=== PATIENT | female | born 1960 | race Caucasian/White ===

== ENCOUNTER 2025-03-25 12:40 | Inpatient (IN) | payer OTHER, SELFPAY ==
[2025-03-25] VITALS (8 sets, daily range): BP systolic 109–146; BP diastolic 46–84; PULSE 69–81; RESP 14–21; TEMP 36.2–37.1; O2SAT 93–98; BMI 29.4
--- NOTE | ~2025-03-25 | CT_ITS ---
EXAMINATION: CT HEAD WITHOUT IV CONTRAST STROKE HISTORY: slurred speech. TECHNIQUE: Unenhanced helical CT of the head was performed per standard departmental protocol. Coronal and sagittal reformats of the head were also evaluated. One or more of the following techniques was used for dose reduction: Automated exposure control, adjustment of the mA and/or kV according to patient size, use of iterative reconstruction technique. DLP: 709 mGy-cm COMPARISON: There are no prior studies available for comparison. FINDINGS: BRAIN: There is diffuse prominence of the ventricular system and cortical sulci, consistent with atrophy. Periventricular and subcortical white matter hypodensities are noted which are nonspecific, but often seen in the setting of small vessel ischemic disease. There is no mass effect or midline shift. No intra- or extra-axial fluid collections are identified. SINUSES: The visualized paranasal sinuses are clear. The mastoid air cells and middle ear cavities are well pneumatized. ORBITS: The visualized orbits are unremarkable. BONES/SOFT TISSUES: The extracranial soft tissues are unremarkable. The calvarium is intact. No suspicious lytic or sclerotic lesions. CT/CT head for STROKE IMPRESSION: No acute intracranial abnormality. Findings were discussed with Dr. Lockett in the emergency room on 03/25/2025 at 1:15 p.m. Electronically signed by: Donn Reece MD 03/25/2025 01:15 PM EDT
--- NOTE | 2025-03-25 12:47 | ECG_ITS ---
Test Reason : stroke alert Blood Pressure : */* mmHG Vent. Rate : 73 BPM Atrial Rate : 73 BPM P-R Int : 136 ms QRS Dur : 86 ms QT Int : 412 ms P-R-T Axes : 77 -20 7 degrees QTcB Int : 453 ms Normal sinus rhythm Nonspecific T wave abnormality Abnormal ECG No previous ECGs available Referred By: Jaycee Bloom Electronically Signed By: HERON LIM
--- NOTE | 2025-03-25 12:52 | ED.NEUROSD ---
HPI - Neuro Symptoms/Deficit General Chief Complaint: Altered Mental Status Stated Complaint: ?STROKE,SPEECH DIF,FROM SNF,[facility]/11A,-[facility]INNERS Source: patient, EMS and old records reviewed Mode of arrival: EMS Limitations: altered mental status History of Present Illness ED Provider: JUAN FRANCISCO GILMORE Narrative: 64 [facility] female [facility] hx of seizures (hx of status 11/2024 requiring ICU intubation), cirrhosis with hepatic encephalopagy, DM, HLD, HTN, confusion at baseline per reccs, not on blood thinners here with c/o increasing AMS since yesterday and then staff noted word finding difficulties but patient states this started yesterday. She denies any pain or falls. She is laughing and states she is fine. She had negative ED FAST per EMS. She denies any fevers n/v/d. Initially only arrived with med list and [facility] no other history or HCP contact call to HCP Silvana [phone] sister aware of plan and work up did not talk to her sister yesterday Onset (ago): day(s) (1) Timing confirmed by: caregiver Location: speech and altered History of same: Yes Severity: mild Relieving factors: none Exacerbating factors: none Context: gradual onset On Anticoagulants: No Associated symptoms: denies other symptoms Treatments Prior to Arrival: none Related Data Allergies Allergy/AdvReac Type Severity Reaction Status Date / Time Penicillins Allergy Unknown Verified 03/25/25 13:10 Sulfa (Sulfonamide Allergy Unknown Verified 03/25/25 13:10 Antibiotics) sulfamethoxazole (From Allergy Unknown Verified 03/25/25 13:10 Bactrim) trimethoprim (From Bactrim) Allergy Unknown Verified 03/25/25 13:10 Review of Systems Review of Systems: Constitutional : No Fever, No Chills, No Fatigue ENT/Mouth : No sore throat, No Rhinorrhea Eyes: No Eye Pain, No Swelling, No Redness Cardiovascular : No Chest Pain, No SOB, No Dyspnea on Exertion Respiratory : No Cough, No Sputum Gastrointestinal : No Nausea, No Vomiting, No Diarrhea, No abdominal Pain Genitourinary : No Dysuria, No Urinary Frequency, No Hematuria, Musculoskeletal : No joint pain, No Myalgias, No Joint Swelling Skin : No Skin Lesions, No rash Neuro : No Weakness, No Numbness, No Dizziness, no Headache All other systems reviewed and are negative PMF Past Medical History Attestation statement: The following information was validated with the patient. Source: old records reviewed Medical History Sacral ulcer Mood disorder Cirrhosis Hepatic encephalopathy Seizures Diabetes Social History Social History Patient Tobacco Use Status: Former Tobacco user Smoked in Last 30 Days: No Use of substances other than those prescribed or required for medical reasons: No Advance Directives: No Advance Directives Information Provided: Yes Do you have a plan to hurt others: No Plan Physical Exam Vital Signs: Vital Signs: Last Vital Signs Temp 97.1 F 03/25/25 16:35 Pulse 75 03/25/25 16:35 Resp 14 03/25/25 16:35 BP 134/56 L 03/25/25 16:35 Pulse Ox 96 03/25/25 16:35 O2 Del Method Room Air 03/25/25 16:35 BMI result Body Mass Index 29.4 Appearance: Alert. Oriented X2.5 (person place and year but thinks it is January). No acute distress. Eyes: Pupils equal, round and reactive to light. ENT: Pharynx normal. Neck: Normal inspection. Neck supple. CVS: Normal heart rate and rhythm. Pulses normal. Respiratory: No respiratory distress. Breath sounds normal. Abdomen: Soft and nontender. Back: has areas of pressure ulcers but no infection, on L hip there is a tracking wound but no purulence or odor, no ttp Skin: Skin warm and dry. Normal skin color. Normal skin turgor. Extremities: No lower extremity edema. No calf ttp Neuro: Oriented X 2.5. No motor deficit. No sensory deficit. slight expressive aphasia but recovers quickly Course Course Course Narrative: lactic acid elevated could be due to liver ds or infection at this time I have ordered fluids and IV ceftriaxone. 225pm Medications Administered Discontinued Medications Generic Name Dose Route Start Last Admin Trade Name Freq PRN Reason Stop Dose Admin Ceftriaxone Sodium 1 gm 03/25/25 14:20 03/25/25 14:43 Ceftriaxone Sodium 1 Gm Vial IVPUSH 03/25/25 14:21 1 gm ONCE ONE Administration Sodium Chloride 1,000 mls @ 999 mls/hr 03/25/25 14:20 03/25/25 16:01 Ns IV 03/25/25 15:20 Infused .Q1H1M ONE Infusion Lactulose 20 gm 03/25/25 14:08 03/25/25 14:15 Lactulose 20 Gm/30 Ml Solution PO 03/25/25 14:09 20 gm ONCE ONE Administration Medical Decision Making Medical Decision Making [facility] Narrative: 64 [facility] female from [facility] hx of seizures, cirrhosis with hepatic encephalopagy, DM, HLD, HTN, confusion at baseline per reccs, not on blood thinners here with c/o increased confusion since yesterday and some word finding difficulties her NIH is 1 which is very low and her symptoms are not debilitating they also note that confusion started yesterday and the patient states her speech was off since yesterday given non debilitating symptoms and window > 4.5 hours not a candidate for TNK. I discussed this with her and her sister. She will need labs, UA, ammonia level, CT head. I am waiting on Cr to obtain CTA as we have no baseline and given her mild symptoms I doubt LVO. Differential Diagnosis Differential Diagnoses: The differential diagnosis associated with the presentation includes hepatic encephalopathy, seizures, stroke Admission/Observation Consideration of admission/observation: Escalation of care including admission/observation considered admit for encephalopathy Consult Healthcare Provider Management of the patient was discussed with: Hospitalist (will admit) Lab Data [facility] Lab Attestation statement: I reviewed the patient's lab results. ammonia 106 started on lactulose lactic acid cleared 03/25/25 13:47 03/25/25 13:47 Labs: Lab Results 03/25/25 03/25/25 03/25/25 Range/Units 12:44 12:45 13:47 WBC 7.9 (4.8-10.8) X10*3/uL RBC 4.46 (4.20-5.50) X10*6/uL Hgb 14.5 (12.0-16.0) g/dl Hct 42.1 (37.0-47.0) % MCV 94.4 (80.0-98.0) fL MCH 32.5 (27.0-33.0) pg MCHC 34.4 (31.0-35.0) g/dl RDW 14.9 (11.0-16.0) % Plt Count 219 (160-400) X10*3/uL MPV 10.4 (9.4-12.3) fL Immature Gran % (Auto) 0.4 (0.0-0.4) % Neut % (Auto) 59.1 (45-73) % Lymph % (Auto) 25.5 (20-40) % [place] % (Auto) 12.3 H (2-11) % Eos % (Auto) 1.9 (0-4) % Baso % (Auto) 0.8 (0-2) % Lymph # (Auto) 2.0 (1.2-4.9) X10*3/uL [place] # (Auto) 1.0 (0.1-1.2) X10*3/uL Eos # (Auto) 0.2 (0.0-0.4) X10*3/uL Baso # (Auto) 0.1 (0.0-0.2) X10*3/uL Abs Immat Gran (auto) 0.03 (0.00-0.03) X10*3/uL Absolute Neuts (auto) 4.7 (2.0-8.3) x10*3/uL Absolute Nucleated RBC 0.000 (0.0-0.012) X10*3/uL Nucleated RBC % (auto) 0.0 (0.0-0.2) /100WBC Whole Blood PT 14.0 H (11.1-13.5) sec Whole Blood INR 1.2 H (0.9-1.1) VBG pH (7.32-7.43) VBG pCO2 mmHg VBG pO2 mmHg VBG HCO3 (22-26) mmol/L VBG O2 Saturation % VBG Base Excess mmol/L Sodium 140 (135-145) mmol/L Potassium 4.2 (3.3-5.1) mmol/L Chloride 109 H (96-108) mmol/L Carbon Dioxide 23 (22-29) mmol/L Anion Gap 12 (12-20) BUN 14 (9-16) mg/dL Creatinine 0.52 (0.5-1.4) mg/dL Estim Creat Clear Calc 121.4 Estimated GFR > 60 POC Glucose 303 H (60-115) mg/dL Random Glucose 233 H (60-115) mg/dL Lactic Acid 3.5 H* (0.5-2.0) mmol/L Lactic Acid F/U @ 2Hr (0.5-2.0) mmol/L Calcium 8.7 (8.4-10.2) mg/dL Magnesium 1.9 (1.6-2.6) mg/dL Total Bilirubin 1.3 H (0.0-1.0) mg/dL Direct Bilirubin 0.5 (0.0-0.5) mg/dL AST 41 H (5-31) U/L ALT 21 (0-31) U/L Alkaline Phosphatase 112 (39-117) U/L Ammonia 106 H (13-55) umol/L Troponin I High Sens 52.3 H* (<3.5-17.0) ng/L C-Reactive Protein 0.78 H (< or = 0.50) mg/dL B-Natriuretic Peptide 19 (<100) pg/mL Total Protein 6.4 L (6.5-8.0) g/dL Albumin 2.6 L (3.5-5.0) g/dL TSH (0.32-4.0) uIU/mL Urine Color Urine Appearance Urine pH (5.0-9.0) Ur Specific [place] (1.005-1.025) Urine Protein (Neg-Trace) mg/dL Urine Glucose (UA) (Negative) mg/dL Urine Ketones (Negative) mg/dL Urine Blood (Negative) Urine Nitrite (Negative) Ur Leukocyte Esterase (Negative) Urine RBC (0-2) /HPF Urine WBC (0-5) /HPF Ur Squamous Epith Cells (0-2) /HPF Urine Bacteria (None Seen) Hyaline Casts (0-2) /LPF Influenza Type A (PCR) (Negative) Influenza Type B (PCR) (Negative) RSV RNA Qual (PCR) (Negative) SARS-CoV-2 RNA (RT-PCR) (Negative) 03/25/25 03/25/25 03/25/25 Range/Units 13:48 13:53 14:37 WBC (4.8-10.8) X10*3/uL RBC (4.20-5.50) X10*6/uL Hgb (12.0-16.0) g/dl Hct (37.0-47.0) % MCV (80.0-98.0) fL MCH (27.0-33.0) pg MCHC (31.0-35.0) g/dl RDW (11.0-16.0) % Plt Count (160-400) X10*3/uL MPV (9.4-12.3) fL Immature Gran % (Auto) (0.0-0.4) % Neut % (Auto) (45-73) % Lymph % (Auto) (20-40) % [place] % (Auto) (2-11) % Eos % (Auto) (0-4) % Baso % (Auto) (0-2) % Lymph # (Auto) (1.2-4.9) X10*3/uL [place] # (Auto) (0.1-1.2) X10*3/uL Eos # (Auto) (0.0-0.4) X10*3/uL Baso # (Auto) (0.0-0.2) X10*3/uL Abs Immat Gran (auto) (0.00-0.03) X10*3/uL Absolute Neuts (auto) (2.0-8.3) x10*3/uL Absolute Nucleated RBC (0.0-0.012) X10*3/uL Nucleated RBC % (auto) (0.0-0.2) /100WBC Whole Blood PT (11.1-13.5) sec Whole Blood INR (0.9-1.1) VBG pH 7.46 H (7.32-7.43) VBG pCO2 37 mmHg VBG pO2 107 mmHg VBG HCO3 27 H (22-26) mmol/L VBG O2 Saturation 99.0 % VBG Base Excess 3.6 mmol/L Sodium (135-145) mmol/L Potassium (3.3-5.1) mmol/L Chloride (96-108) mmol/L Carbon Dioxide (22-29) mmol/L Anion Gap (12-20) BUN (9-16) mg/dL Creatinine (0.5-1.4) mg/dL Estim Creat Clear Calc Estimated GFR POC Glucose (60-115) mg/dL Random Glucose (60-115) mg/dL Lactic Acid (0.5-2.0) mmol/L Lactic Acid F/U @ 2Hr (0.5-2.0) mmol/L Calcium (8.4-10.2) mg/dL Magnesium (1.6-2.6) mg/dL Total Bilirubin (0.0-1.0) mg/dL Direct Bilirubin (0.0-0.5) mg/dL AST (5-31) U/L ALT (0-31) U/L Alkaline Phosphatase (39-117) U/L Ammonia (13-55) umol/L Troponin I High Sens 52.6 H* (<3.5-17.0) ng/L C-Reactive Protein (< or = 0.50) mg/dL B-Natriuretic Peptide (<100) pg/mL Total Protein (6.5-8.0) g/dL Albumin (3.5-5.0) g/dL TSH 0.83 (0.32-4.0) uIU/mL Urine Color Urine Appearance Urine pH (5.0-9.0) Ur Specific [place] (1.005-1.025) Urine Protein (Neg-Trace) mg/dL Urine Glucose (UA) (Negative) mg/dL Urine Ketones (Negative) mg/dL Urine Blood (Negative) Urine Nitrite (Negative) Ur Leukocyte Esterase (Negative) Urine RBC (0-2) /HPF Urine WBC (0-5) /HPF Ur Squamous Epith Cells (0-2) /HPF Urine Bacteria (None Seen) Hyaline Casts (0-2) /LPF Influenza Type A (PCR) NEGATIVE (Negative) Influenza Type B (PCR) NEGATIVE (Negative) RSV RNA Qual (PCR) NEGATIVE (Negative) SARS-CoV-2 RNA (RT-PCR) NEGATIVE (Negative) 03/25/25 Range/Units 16:30 WBC (4.8-10.8) X10*3/uL RBC (4.20-5.50) X10*6/uL Hgb (12.0-16.0) g/dl Hct (37.0-47.0) % MCV (80.0-98.0) fL MCH (27.0-33.0) pg MCHC (31.0-35.0) g/dl RDW (11.0-16.0) % Plt Count (160-400) X10*3/uL MPV (9.4-12.3) fL Immature Gran % (Auto) (0.0-0.4) % Neut % (Auto) (45-73) % Lymph % (Auto) (20-40) % [place] % (Auto) (2-11) % Eos % (Auto) (0-4) % Baso % (Auto) (0-2) % Lymph # (Auto) (1.2-4.9) X10*3/uL [place] # (Auto) (0.1-1.2) X10*3/uL Eos # (Auto) (0.0-0.4) X10*3/uL Baso # (Auto) (0.0-0.2) X10*3/uL Abs Immat Gran (auto) (0.00-0.03) X10*3/uL Absolute Neuts (auto) (2.0-8.3) x10*3/uL Absolute Nucleated RBC (0.0-0.012) X10*3/uL Nucleated RBC % (auto) (0.0-0.2) /100WBC Whole Blood PT (11.1-13.5) sec Whole Blood INR (0.9-1.1) VBG pH (7.32-7.43) VBG pCO2 mmHg VBG pO2 mmHg VBG HCO3 (22-26) mmol/L VBG O2 Saturation % VBG Base Excess mmol/L Sodium (135-145) mmol/L Potassium (3.3-5.1) mmol/L Chloride (96-108) mmol/L Carbon Dioxide (22-29) mmol/L Anion Gap (12-20) BUN (9-16) mg/dL Creatinine (0.5-1.4) mg/dL Estim Creat Clear Calc Estimated GFR POC Glucose (60-115) mg/dL Random Glucose (60-115) mg/dL Lactic Acid (0.5-2.0) mmol/L Lactic Acid F/U @ 2Hr 2.4 H* (0.5-2.0) mmol/L Calcium (8.4-10.2) mg/dL Magnesium (1.6-2.6) mg/dL Total Bilirubin (0.0-1.0) mg/dL Direct Bilirubin (0.0-0.5) mg/dL AST (5-31) U/L ALT (0-31) U/L Alkaline Phosphatase (39-117) U/L Ammonia (13-55) umol/L Troponin I High Sens (<3.5-17.0) ng/L C-Reactive Protein (< or = 0.50) mg/dL B-Natriuretic Peptide (<100) pg/mL Total Protein (6.5-8.0) g/dL Albumin (3.5-5.0) g/dL TSH (0.32-4.0) uIU/mL Urine Color Dark Yellow Urine Appearance Cloudy Urine pH 5.5 (5.0-9.0) Ur Specific [place] 1.025 (1.005-1.025) Urine Protein Trace (Neg-Trace) mg/dL Urine Glucose (UA) 250 H (Negative) mg/dL Urine Ketones Negative (Negative) mg/dL Urine Blood Trace H (Negative) Urine Nitrite Negative (Negative) Ur Leukocyte Esterase Large (3+) H (Negative) Urine RBC 3-5 H (0-2) /HPF Urine WBC >50 H (0-5) /HPF Ur Squamous Epith Cells 11-20 (0-2) /HPF Urine Bacteria 4+ (None Seen) Hyaline Casts 0-2 (0-2) /LPF Influenza Type A (PCR) (Negative) Influenza Type B (PCR) (Negative) RSV RNA Qual (PCR) (Negative) SARS-CoV-2 RNA (RT-PCR) (Negative) Independent Interpretation I performed an independent interpretation of an: EKG, Plain X-Ray and CT Scan (no ICH) Interpretation: Rate: 73 Rhythm: NSR [place]: left Normal P waves. Normal DORIAN. Normal QRS complex. ST T wave : inverted t waves III, no PAT qTC: 453 prior studies: no prior The study has been interpreted contemporaneously by me. . Radiology Impression Discussion of test interpretation with radiology: I have reviewed the radiologist's reading. Independent Historian Clinical information obtained from an independent historian. History obtained from or confirmed by: EMS External Record Review External record reviewed: Outpatient record NIH Stroke Scale Internal: Initial- Upon Arrival Level of Consciousness: Alert Level of Consciousness Questions: Answers both questions correctly Level of Consciousness Commands: Performs both tasks correctly Best Gaze: Normal Visual: No visual loss Facial Palsy: Normal Motor Arm (Right): No drift Motor Arm (Left): No drift Motor Leg (Right): No drift Motor Leg (Left): No drift Limb Ataxia: Absent Sensory: Normal Best Language: Mild to moderate aphasia Dysarthia: Normal Extinction and Inattention: No abnormality Score: 1 Critical Care Time Critical Care Time Critical Care Time: Yes Total Critical Care Time: 40 Attestation: Time is exclusive of separately billable procedures. Time includes: direct patient care, patient reassessment, coordination of patient care, interpretation of data (laboratory data, pulse oximetry, arterial blood gases and chest xrays/CT scans), review of patient's medical records, medical consultation and documentation of patient care. stroke protocol, family work upProcedures excluded from critical care time: electrocardiography. Discharge Plan Discharge Clinical Impression: Acute hepatic encephalopathy, Acidosis, lactic, Acute UTI Altered mental status Qualifiers: Altered mental status type: unspecified Qualified Code(s): R41.82 - Altered mental status, unspecified Patient Disposition: Admitted As Inpatient Print Language: Danish
[2025-03-25 12:53] LABS: Prothrombin Time Whole Bld POC 14.0 sec (11.1-13.5); ~PT, ~INR - Anti Coag Clinic 1.2 (0.9-1.1)
[2025-03-25 12:54] LABS: Glucose, Whole Blood 303 mg/dL (60-115)
--- NOTE | 2025-03-25 13:16 | PC.NURSE ---
Pt A&O X4 VSS Pt seen at door by provider and STAT CT done, Pt able to explain that she she did not want the facility to worry that she was fine but started feeling confused and they got worried . Pt placed on full monitor- NSR No ectopy, moves all extremities equal and well. Pupils Equal and reactive.
[2025-03-25 13:52] LABS: MANUAL DIFF FLAG NO
[2025-03-25 13:57] LABS: VBG HCO3 27 mmol/L (22-26); VBG O2 % Saturation 99.0 %
[2025-03-25 13:58] LABS: Venous Blood Gas Refer to POC result
[2025-03-25 14:03] LABS: Hematocrit 42.1 % (37.0-47.0); Hemoglobin 14.5 g/dl (12.0-16.0); Imm Gran Abs Auto 0.03 X10*3/uL (0.00-0.03); Imm Gran Pct Auto 0.4 % (0.0-0.4); Lymphocytes Absolute Auto 2.0 X10*3/uL (1.2-4.9); Mean Corpuscular HGB Conc 34.4 g/dl (31.0-35.0); Mean Corpuscular Hemoglobin 32.5 pg (27.0-33.0); Mean Corpuscular Volume 94.4 fL (80.0-98.0); NRBC Abs Auto 0.000 X10*3/uL (0.0-0.012); NRBC Pct Auto 0.0 /100WBC (0.0-0.2); Platelet Count 219 X10*3/uL (160-400); Red Blood Count 4.46 X10*6/uL (4.20-5.50); White Blood Count 7.9 X10*3/uL (4.8-10.8)
[2025-03-25 14:06] LABS: Ammonia 106 umol/L (13-55)
[2025-03-25 14:10] LABS: Alanine Aminotransferase 21 U/L (0-31); Albumin Level 2.6 g/dL (3.5-5.0); Alkaline Phosphatase 112 U/L (39-117); Anion Gap 12 (12-20); Aspartate Amino Transferase 41 U/L (5-31); Blood Urea Nitrogen 14 mg/dL (9-16); Calcium 8.7 mg/dL (8.4-10.2); Carbon Dioxide 23 mmol/L (22-29); Chloride 109 mmol/L (96-108); Creatinine Clr Calc Pharmacy 121.4; Estimated Glomerular Filt Rate > 60; Magnesium 1.9 mg/dL (1.6-2.6); Potassium 4.2 mmol/L (3.3-5.1); Sodium 140 mmol/L (135-145); Total Protein 6.4 g/dL (6.5-8.0)
[2025-03-25 14:14] LABS: B Type Natriuretic Peptide 19 pg/mL (<100)
[2025-03-25 14:21] LABS: Troponin-I High Sensitivity 52.3 ng/L (<3.5-17.0)
[2025-03-25 14:32] LABS: Resp Syncy Virus RNA Qual PCR NEGATIVE (Negative); SARS COV2 PCR INHOUSE NEGATIVE (Negative)
[2025-03-25 15:15] LABS: Troponin-I High Sensitivity 52.6 ng/L (<3.5-17.0)
[2025-03-25 15:52] LABS: Reflex Lactate? Lactic Acid Added
--- NOTE | 2025-03-25 16:14 | PC.NURSE ---
foam dressing placed to coccyx/ sacrum
--- NOTE | 2025-03-25 16:27 | PC.NURSE ---
repositioned to right side, pillow placed under buttocks, family at bedside
[2025-03-25 16:40] LABS: Appearance Urine Cloudy; Glucose Urine UA 250 mg/dL (Negative); PH 5.5 (5.0-9.0); Specific Gravity - Urine 1.025 (1.005-1.025); UMIC TRIGGER UACC YES
[2025-03-25 16:46] LABS: UACC Culture Trigger YES
[2025-03-25 16:59] LABS: ~Lactic Acid-LAB USE ONLY 2.4 mmol/L (0.5-2.0)
--- NOTE | 2025-03-25 18:09 | P.HPHOSP_ITS ---
History of Present Illness Date of Service: 03/25/25 Chief Complaint: Altered mental status 64 [facility] female from [facility] hx of seizures (hx of status 11/2024 requiring ICU intubation), cirrhosis with hepatic encephalopagy, DM, HLD, HTN, confusion at baseline per reccs, not on blood thinners here with c/o increasing AMS since yesterday and then staff noted word finding difficulties but patient states this started yesterday. She denies any pain or falls. She is laughing and states she is fine. She had negative ED FAST per EMS. She denies any fevers n/v/d. Initially only arrived with med list and [facility] no other history or HCP contact. Did not qualify for TN K based on a greater than a 4.5 hour window. At this point in time she will be admitted and observed and re-evaluated in a.m. Review of Systems 2 Review of Systems: Unable to obtain [facility] Medical History (Updated 03/25/25 @ 18:12 by Walter Monique DO) Sacral ulcer Mood disorder Cirrhosis Hepatic encephalopathy Seizures Diabetes Social History Patient Tobacco Use Status: Former Tobacco user Smoked in Last 30 Days: No Use of substances other than those prescribed or required for medical reasons: No Advance Directives: No Advance Directives Information Provided: Yes Do you have a plan to hurt others: No Plan Meds Allergies Allergy/AdvReac Type Severity Reaction Status Date / Time Penicillins Allergy Unknown Verified 03/25/25 13:10 Sulfa (Sulfonamide Allergy Unknown Verified 03/25/25 13:10 Antibiotics) sulfamethoxazole (From Allergy Unknown Verified 03/25/25 13:10 Bactrim) trimethoprim (From Bactrim) Allergy Unknown Verified 03/25/25 13:10 Active Medications: Current Medications Acetaminophen (Acetaminophen 325 Mg Tablet) 650 mg PO Q6H PRN PRN Reason: Pain, Mild 1-3,fever,headache Calcium Carbonate (Calcium Carbonate 750 Mg Tab.Chew) 750 mg PO Q4H PRN PRN Reason: Heartburn Enoxaparin Sodium (Enoxaparin Sodium 40 Mg/0.4 Ml Syringe) 40 mg SUBCUT Q24H YONNY Lactated Ringer's (Lr) 1,000 mls @ 100 mls/hr IVCONT .Q10H YONNY Magnesium Hydroxide (Milk Of Magnesia 30 Ml Oral.Susp) 30 ml PO DAILY PRN PRN Reason: Constipation Melatonin (Melatonin 3 Mg Tablet) 6 mg PO BEDTIME PRN PRN Reason: Insomnia Ondansetron HCl (Ondansetron Hcl 4 Mg/2 Ml Vial) 4 mg IVPUSH Q8H PRN PRN Reason: Nausea and Vomiting Sodium Chloride (0.9 % Sodium Chloride Flush 3 Ml Syringe) 3 ml IVFLUSH QSHIFT [facility] Physical Exam 2 Vital Signs and Narrative: Vital Signs: Last Vital Signs Temp 97.6 F 03/25/25 18:06 Pulse 73 03/25/25 18:06 Resp 15 03/25/25 18:06 BP 133/47 L 03/25/25 18:06 Pulse Ox 95 03/25/25 18:06 O2 Del Method Room Air 03/25/25 18:06 BMI result Body Mass Index 29.4 Const: Other: Awake confused. Speech slow Resp: Other: Clear to auscultation bilaterally no rales rhonchi or wheezes Cardio: Other: No S4; positive S1-S2; no S3 murmurs rubs or gallops GI: Other: Soft nontender nondistended normoactive bowel sounds Skin: Other: See admitting ER pictures for details Extrem: Other: No edema bilaterally Results Labs 03/25/25 13:47 03/25/25 13:47 Labs: Laboratory Results - last 24 hr 03/25/25 03/25/25 03/25/25 12:44 12:45 13:47 MCV 94.4 MCH 32.5 MCHC 34.4 RDW 14.9 Plt Count 219 MPV 10.4 Immature Gran % (Auto) 0.4 Neut % (Auto) 59.1 Lymph % (Auto) 25.5 [place] % (Auto) 12.3 H Eos % (Auto) 1.9 Baso % (Auto) 0.8 Lymph # (Auto) 2.0 [place] # (Auto) 1.0 Eos # (Auto) 0.2 Baso # (Auto) 0.1 Abs Immat Gran (auto) 0.03 Absolute Neuts (auto) 4.7 Absolute Nucleated RBC 0.000 Nucleated RBC % (auto) 0.0 Whole Blood PT 14.0 H Whole Blood INR 1.2 H VBG pH VBG pCO2 VBG pO2 VBG HCO3 VBG O2 Saturation VBG Base Excess Anion Gap 12 Estim Creat Clear Calc 121.4 Estimated GFR > 60 POC Glucose 303 H Random Glucose 233 H Lactic Acid 3.5 H* Lactic Acid F/U @ 2Hr Calcium 8.7 Magnesium 1.9 Total Bilirubin 1.3 H Direct Bilirubin 0.5 AST 41 H ALT 21 Alkaline Phosphatase 112 Ammonia 106 H C-Reactive Protein 0.78 H B-Natriuretic Peptide 19 Total Protein 6.4 L Albumin 2.6 L TSH Urine Color Urine Appearance Urine pH Ur Specific [place] Urine Protein Urine Glucose (UA) Urine Ketones Urine Blood Urine Nitrite Ur Leukocyte Esterase Urine RBC Urine WBC Ur Squamous Epith Cells Urine Bacteria Hyaline Casts Influenza Type A (PCR) Influenza Type B (PCR) RSV RNA Qual (PCR) SARS-CoV-2 RNA (RT-PCR) 03/25/25 03/25/25 03/25/25 13:48 13:53 16:30 MCV MCH MCHC RDW Plt Count MPV Immature Gran % (Auto) Neut % (Auto) Lymph % (Auto) [place] % (Auto) Eos % (Auto) Baso % (Auto) Lymph # (Auto) [place] # (Auto) Eos # (Auto) Baso # (Auto) Abs Immat Gran (auto) Absolute Neuts (auto) Absolute Nucleated RBC Nucleated RBC % (auto) Whole Blood PT Whole Blood INR VBG pH 7.46 H VBG pCO2 37 VBG pO2 107 VBG HCO3 27 H VBG O2 Saturation 99.0 VBG Base Excess 3.6 Anion Gap Estim Creat Clear Calc Estimated GFR POC Glucose Random Glucose Lactic Acid Lactic Acid F/U @ 2Hr 2.4 H* Calcium Magnesium Total Bilirubin Direct Bilirubin AST ALT Alkaline Phosphatase Ammonia C-Reactive Protein B-Natriuretic Peptide Total Protein Albumin TSH 0.83 Urine Color Dark Yellow Urine Appearance Cloudy Urine pH 5.5 Ur Specific [place] 1.025 Urine Protein Trace Urine Glucose (UA) 250 H Urine Ketones Negative Urine Blood Trace H Urine Nitrite Negative Ur Leukocyte Esterase Large (3+) H Urine RBC 3-5 H Urine WBC >50 H Ur Squamous Epith Cells 11-20 Urine Bacteria 4+ Hyaline Casts 0-2 Influenza Type A (PCR) NEGATIVE Influenza Type B (PCR) NEGATIVE RSV RNA Qual (PCR) NEGATIVE SARS-CoV-2 RNA (RT-PCR) NEGATIVE Imaging Radiologist's Impressions: Impressions Head CT 03/25/25 12:52 IMPRESSION: No acute intracranial abnormality. Findings were discussed with Dr. Lockett in the emergency room on 03/25/2025 at 1:15 p.m. Electronically signed by: Donn Reece MD 03/25/2025 01:15 PM EDT RP Assessment and Plan (1) Acute hepatic encephalopathy: Status: Acute (2) Acute UTI: Status: Acute Plan 64 [facility] female from [facility] hx of seizures (hx of status 11/2024 requiring ICU intubation), cirrhosis with hepatic encephalopagy, DM, HLD, HTN, confusion at baseline per reccs, not on blood thinners here with c/o increasing AMS since yesterday and then staff noted word finding difficulties but patient states this started yesterday. Workup in ER including CTA of head all unremarkable save urine with active sediment. 1. UTI with mental status changes -ceftriaxone 1 g Q 24 hours (1) -urine culture pending; adjust therapies based on results -NPO overnight; speech eval in a.m. 2. Hepatic encephalopathy acute -continue lactulose -ammonia level in a.m. 3. Diabetes type 2 -acceptable control on current therapies -lispro correctional scale -adjust as clinically indicated Full code Lovenox Patient will require 2 minutes going forward to treat mental status changes related to UTI with IV antibiotics. This can not be achieved a lesser acute setting Quality Stroke Does the patient have a stroke diagnosis?: No VTE Prior VTE?: No VTE Risk Level:: Medical - moderate - high VTE Device Contraindication: Treatment Not Indicated VTE Drug Contraindication: N/A - Med Ordered
[2025-03-25] MEDS: Lactated Ringers 1,000 ML 100 ML IVCONT (18:11)
[2025-03-25 18:34] LABS: Reflex Lactate? 2 Y
--- NOTE | 2025-03-25 18:38 | PHA.MEDREC ---
Addendum entered by Donovan Rand PharmD 03/25/25 18:41: reviewed Original Note: Pharmacy Consult ? Medication Reconciliation Pharmacy has completed the medication reconciliation. Patient is a poor historian. Utilized list from [facility] to confirm med list.
[2025-03-25 19:24] LABS: ~Lactic Acid-LAB USE ONLY 1.6 mmol/L (0.5-2.0)
[2025-03-25 21:30] LABS: Glucose, Whole Blood 104 mg/dL (60-115)
[2025-03-25] MEDS: 0.9 % Sodium Chloride Flush 3 ML SYRINGE IVFLUSH (21:32)
--- NOTE | 2025-03-25 23:43 | PC.NURSE ---
patient has tele order but no tele box available at the moment. MD aware
[2025-03-26 03:11] VITALS: BP 128/60; PULSE 81; RESP 16; TEMP 36.6; O2SAT 92
[2025-03-26] MEDS: Lactated Ringers 1,000 ML 100 ML IVCONT ×3 (04:14→23:38)
[2025-03-26 07:32] LABS: Glucose, Whole Blood 123 mg/dL (60-115)
[2025-03-26 08:00] VITALS: BP 127/60; PULSE 78; RESP 18; TEMP 37.4; O2SAT 93
[2025-03-26 11:17] LABS: Glucose, Whole Blood 129 mg/dL (60-115)
--- NOTE | 2025-03-26 14:03 | MHC.CM.PN ---
CM ASSESSMENT COMPLETED W/ HCP/SISTER LILIANA. PER LILIANA, PATIENT WAS PREVIOUSLY LIVING WITH A BOYFRIEND. HOWEVER, AFTER A PROLONGED STAY AT [facility] THIS YEAR IS NOW AT STR @ [facility]. REPORTS SHE HAS SUBMITTED ALL FINANCIAL DOCUMENTS TO THE SNF AND THEY ARE WORKING ON [place] TO TRANSITION TO LTC. PCP ÁNGEL MARQUEZ MD @ [facility] HCP OBTAINED FROM [facility]. DP: + BED HOLD AT [facility]. RETURN VIA BLS WHEN MEDICALLY CLEARED. CM WILL CONTINUE TO FOLLOW.
--- NOTE | 2025-03-26 14:47 | HO.PM.IMPN ---
Subjective Subjective Date of Service: 03/26/25 Interval History: No acute issues overnight. Remains pleasantly confused Review of Systems Unable to obtain Physical Exam Vital Signs: Vital Signs: Last Vital Signs Temp 99.3 F 03/26/25 08:00 Pulse 78 03/26/25 08:00 Resp 18 03/26/25 08:00 BP 127/60 03/26/25 08:00 Pulse Ox 93 03/26/25 08:00 O2 Del Method Room Air 03/26/25 08:00 BMI result Body Mass Index 29.4 Const: Other: Awake confused. Speech slow Resp: Other: Clear to auscultation bilaterally no rales rhonchi or wheezes Cardio: Other: No S4; positive S1-S2; no S3 murmurs rubs or gallops GI: Other: Soft nontender nondistended normoactive bowel sounds Skin: Other: See admitting ER pictures for details Extrem: Other: No edema bilaterally Objective Data Active Medications Acetaminophen (Acetaminophen 325 Mg Tablet) 650 mg PO Q6H PRN PRN Reason: Pain, Mild 1-3,fever,headache Calcium Carbonate (Calcium Carbonate 750 Mg Tab.Chew) 750 mg PO Q4H PRN PRN Reason: Heartburn Ceftriaxone Sodium (Ceftriaxone Sodium 1 Gm Vial) 1 gm IVPUSH Q24H [facility] Last Admin: 03/25/25 21:27 Dose: 1 gm Documented By: PAZ Dextrose (Dextrose 50 % 25 Gm/50 Ml Syringe) 25 gm IVPUSH Q15M PRN; Protocol PRN Reason: per Hypoglycemia Standing Ord. Enoxaparin Sodium (Enoxaparin Sodium 40 Mg/0.4 Ml Syringe) 40 mg SUBCUT Q24H [facility] Last Admin: 03/25/25 18:10 Dose: 40 mg Documented By: ALICE Glucose (Glucose Gel 15 Gm Gel..Gram.) 15 gm PO Q15M PRN; Protocol PRN Reason: per Hypoglycemia Standing Ord. Lactated Ringer's (Lr) 1,000 mls @ 100 mls/hr IVCONT .Q10H [facility] Last Admin: 03/26/25 13:42 Dose: 100 mls/hr Documented By: KAELA Insulin Human Lispro (Insulin Lispro 100 Unit/Ml 3 Ml Vial) 0 unit SUBCUT QIDACHS [facility]; Protocol Last Admin: 03/26/25 11:31 Dose: Not Given Documented By: KAELA Non-Admin Reason: No Insulin Coverage Magnesium Hydroxide (Milk Of Magnesia 30 Ml Oral.Susp) 30 ml PO DAILY PRN PRN Reason: Constipation Melatonin (Melatonin 3 Mg Tablet) 6 mg PO BEDTIME PRN PRN Reason: Insomnia Ondansetron HCl (Ondansetron Hcl 4 Mg/2 Ml Vial) 4 mg IVPUSH Q8H PRN PRN Reason: Nausea and Vomiting Sodium Chloride (0.9 % Sodium Chloride Flush 3 Ml Syringe) 3 ml IVFLUSH QSHIFT [facility] Last Admin: 03/26/25 09:52 Dose: Not Given Documented By: KAELA Non-Admin Reason: IV Running Labs 03/25/25 13:47 03/25/25 13:47 Labs: Laboratory Results - last 24 hr 03/25/25 03/25/25 03/25/25 16:30 19:04 21:26 POC Glucose 104 Lactic Acid F/U @ 2Hr 2.4 H* Lactic Acid F/U @ 4Hr 1.6 Urine Color Dark Yellow Urine Appearance Cloudy Urine pH 5.5 Ur Specific [place] 1.025 Urine Protein Trace Urine Glucose (UA) 250 H Urine Ketones Negative Urine Blood Trace H Urine Nitrite Negative Ur Leukocyte Esterase Large (3+) H Urine RBC 3-5 H Urine WBC >50 H Ur Squamous Epith Cells 11-20 Urine Bacteria 4+ Hyaline Casts 0-2 03/26/25 03/26/25 07:20 11:10 POC Glucose 123 H 129 H Lactic Acid F/U @ 2Hr Lactic Acid F/U @ 4Hr Urine Color Urine Appearance Urine pH Ur Specific [place] Urine Protein Urine Glucose (UA) Urine Ketones Urine Blood Urine Nitrite Ur Leukocyte Esterase Urine RBC Urine WBC Ur Squamous Epith Cells Urine Bacteria Hyaline Casts Microbiology Microbiology Results: Microbiology 03/25/25 17:05 Urine Culture - Preliminary Urine clean catch - Clean Catch Midstream Culture in progress. Assessment and Plan (1) Acute UTI: Status: Acute (2) Diabetes: Status: Acute Plan 64 yo female from rehab hx of seizures (hx of status 11/2024 requiring ICU intubation), cirrhosis with hepatic encephalopagy, DM, HLD, HTN, confusion at baseline per reccs, not on blood thinners here with c/o increasing AMS since yesterday and then staff noted word finding difficulties but patient states this started yesterday. Workup in ER including CTA of head all unremarkable save urine with active sediment. 1. UTI with mental status changes -ceftriaxone 1 g Q 24 hours (2) -urine culture pending; adjust therapies based on results 2. Hepatic encephalopathy acute -continue lactulose -ammonia level in a.m. 3. Diabetes type 2 -acceptable control on current therapies -lispro correctional scale -adjust as clinically indicated Full code Lovenox Patient will require 2 minutes going forward to treat mental status changes related to UTI with IV antibiotics. This can not be achieved a lesser acute setting Quality Stroke Does the patient have a stroke diagnosis?: No VTE Prior VTE?: No VTE Risk Level:: Medical - moderate - high VTE Device Contraindication: Treatment Not Indicated VTE Drug Contraindication: N/A - Med Ordered
[2025-03-26 15:42] VITALS: BP 130/60; PULSE 82; RESP 16; TEMP 36.5; O2SAT 93
[2025-03-26 16:21] LABS: Glucose, Whole Blood 247 mg/dL (60-115)
--- NOTE | 2025-03-26 17:35 | HO.WOUND ---
Wound Consult: Initial 64yr old?female admitted to [facility] on 03/25/25 - See progress notes and H&P for detailed history.? Wound consult placed for Buttock and Left Leg wound.? Patient agreeable to assessment and photo documentation.? Patient with mixed incontinence. Patient reports she has baseline Psorisis she reports she does follow with outpt doctor for psoriasis treatment. Coccyx Etiology: ?Stage 4 Pressure injury ?Present on Admission Measurements: 2cm x1 cm x 2cm Wound Bed: red moist wound bed probes to bone Drainage / Odor: simms small amount Edges: ? unattached Polina wound: ?MASD and Psoriasis there is a small pocket of fluid at the anal area - treat with triad - provider to assess Pain: tenderness Goals of Treatment: ? Durafiber to Coccyx wound and traid to perianal and perineal area Left Iliac Crest Hip Etiology: ?Stage 3 Pressure injury ?Present on Admission Measurements: 0.2cm x1 cm x 0.4cm Wound Bed: red moist wound bed Drainage / Odor: simms small amount Edges: ? unattached Polina wound: Psoriasis Pain:None Goals of Treatment: ? Durafiber Left Leg - appears to be a psoriatic lesion - foam dressing in place - clean pink moist wound bed. The appearance of the psoriasis may be confused with fungal dermatitis at this time I do not think she needs topical antifungal direct care team will monitor for improvement. Recommendations: 1. Turn and Reposition every 2 hours and as needed for patient comfort.? Use pillows or wedges to support off loading positions. 2. Off Load all bony prominences with use of pillows and heel boots if needed.? Apply Preventative foams where needed. ? 3. Monitor for incontinence and moisture control, use barrier creams when needed for prevention and treatment. 4. Provide adequate and supplemental nutrition.? 5. Order low air loss mattress. 6. When applicable maintain blood glucose levels per Providers order. Coccyx and Left Hip - Off Load Pressure with Q2 hr turns and use of pillows Cleanse and irrigate with NS, Pat dry.? Apply barrier to periwound, lightly pack with Durafiber AG, be sure to leave a wick to easy removal.? Cover with Foam dressing.? Change every other day. Left Lateral Leg / thigh - Cleanse with saline moist gauze, pat dry Apply skin prep cover with foam dressing change every 3 days. Re-consult wound care Nurse for wound deterioration or wound changes.
--- NOTE | 2025-03-26 18:35 | MHC.SL.SWA ---
Speech Pathologist Impression: Risk of Aspiration Due to: mild oral phase dysphagia Dysphasia Diet Status: Liquid Consistency and Strategies for Safe Swallow: Liquid Intake Recommendation: Thin Liquid Intake Strategies: Solid Food Consistency: Dietary Recommendations: Chopped/Advanced (NDD3) Additional Modifications to Solid Foods: Oral Medication Intake: Whole with Puree Please contact the pharmacy regarding appropriate crushable or liquid drug formulations that are available whenever modified delivery is recommended. Compensatory Strategies and Precautions to be Taken for Safe Swallow: Supervision While Eating and Drinking for Safe Swallow: Tray Set Up Foods to Avoid: Tough difficult to chew solids. Swallowing Recommended Treatments: Recommendation for Speech: Inpatient Speech Therapy Comment: Patient is edentulous, has mild oral phase dysphagia. Recommend UPGRADE from NPO to Chopped/Advanced with Thin liquids, pills whole with puree. Patient has some difficulty managing food independently due to upper extremity tremors, would benefit from tray set up AND periodic supervision to assure she is progressing with meal and not spilling. , PRAMOD notified of recommendation by secure text, RN in person. HOTEL MAINTENANCE ENGINEER to follow 1-2X to assure toleration, advance diet if warranted. Frequency/Duration: Date Range for Service Req: Timeline to reassess: Horticulture Professor Clinican/Clinical Fellow: No Supervisory Statement: I have reviewed and agree with the student/clinical fellow's documentation: N/A Speech Language Pathologist: Elsy Enriquez M.A., CCC-HOTEL MAINTENANCE ENGINEER
[2025-03-26 19:27] VITALS: BP 123/59; PULSE 86; RESP 17; TEMP 36.1; O2SAT 95
[2025-03-26] MEDS: 0.9 % Sodium Chloride Flush 3 ML SYRINGE IVFLUSH (21:54)
[2025-03-27 01:30] LABS: Glucose, Whole Blood 242 mg/dL (60-115)
[2025-03-27 03:37] VITALS: BP 119/59; PULSE 74; RESP 16; TEMP 36.1; O2SAT 92
[2025-03-27 06:39] LABS: MANUAL DIFF FLAG NO
[2025-03-27 06:59] LABS: Alanine Aminotransferase 15 U/L (0-31); Albumin Level 2.3 g/dL (3.5-5.0); Alkaline Phosphatase 102 U/L (39-117); Anion Gap 11 (12-20); Aspartate Amino Transferase 38 U/L (5-31); Blood Urea Nitrogen 9 mg/dL (9-16); Calcium 8.4 mg/dL (8.4-10.2); Carbon Dioxide 25 mmol/L (22-29); Chloride 108 mmol/L (96-108); Creatinine Clr Calc Pharmacy 161.9; Estimated Glomerular Filt Rate > 60; Potassium 3.5 mmol/L (3.3-5.1); Sodium 140 mmol/L (135-145); Total Protein 5.5 g/dL (6.5-8.0)
[2025-03-27 07:08] LABS: Hematocrit 38.3 % (37.0-47.0); Hemoglobin 13.3 g/dl (12.0-16.0); Imm Gran Abs Auto 0.01 X10*3/uL (0.00-0.03); Imm Gran Pct Auto 0.1 % (0.0-0.4); Lymphocytes Absolute Auto 2.8 X10*3/uL (1.2-4.9); Mean Corpuscular HGB Conc 34.7 g/dl (31.0-35.0); Mean Corpuscular Hemoglobin 32.6 pg (27.0-33.0); Mean Corpuscular Volume 93.9 fL (80.0-98.0); NRBC Abs Auto 0.000 X10*3/uL (0.0-0.012); NRBC Pct Auto 0.0 /100WBC (0.0-0.2); Platelet Count 197 X10*3/uL (160-400); Red Blood Count 4.08 X10*6/uL (4.20-5.50); White Blood Count 6.8 X10*3/uL (4.8-10.8)
[2025-03-27 07:39] LABS: Glucose, Whole Blood 140 mg/dL (60-115)
[2025-03-27 07:49] VITALS: BP 129/60; PULSE 66; RESP 18; TEMP 36.7; O2SAT 96
[2025-03-27 09:31] VITALS: BMI 29.4
--- NOTE | 2025-03-27 09:44 | MHC.CLN ---
NUTRITION DIET=DIABETIC 1800 KCALS, CHOPPED CONSISTENCY. ADDING ENSURE MAX PROTEIN BID TO PROMOTE WOUND HEALING. SUPPLEMENT PROVIDES 300 KCALS, 60 G PROTEIN. SKIN WITH STAGE III TO LEFT ILIAC CREST AND STAGE IV TO COCCYX. PO INTAKE AT MEALS APPEARS TO BE GOOD. FOLLOW FOR PO INTAKE AND SKIN INTEGRITY. SEE CLINICAL NUTRITION ASSESSMENT 03/27/25.
[2025-03-27] MEDS: Lactated Ringers 1,000 ML 100 ML IVCONT (09:52)
--- NOTE | 2025-03-27 11:09 | MHC.CM.PN ---
Per MD rounds patient medically cleared for dc back to SNF (STR, transition to LTC). BLS booked for 2:30pm. LM for HCP/sister Silvana w/ this information. and RN aware.
[2025-03-27 11:29] LABS: Glucose, Whole Blood 197 mg/dL (60-115)
--- NOTE | 2025-03-27 12:29 | PM.DS ---
DS: Providers Provider Date of Service: 03/27/25 Date of admission: 03/25/25 17:07 Date of discharge: 03/27/25 Primary care physician: Candie Richardson MD Consults: 03/26/25 00:21 Consult to Wound Care Routine Reason for consultation: rash to buttocks, small open slit to L upper thigh, abrasion left leg DS: Diagnosis Discharge Diagnosis (1) Acute UTI: Status: Acute (2) Diabetes: Status: Acute DS: Summary Hospital Course Hospital Course: 64 yo female from [facility] hx of seizures (hx of status 11/2024 requiring ICU intubation), cirrhosis with hepatic encephalopagy, DM, HLD, HTN, confusion at baseline per reccs, not on blood thinners here with c/o increasing AMS since yesterday and then staff noted word finding difficulties but patient states this started yesterday. She denies any pain or falls. She is laughing and states she is fine. She had negative ED FAST per EMS. She denies any fevers n/v/d. [facility] no other history or HCP contact. Did not qualify for [place] [facility] based on a greater than a 4.5 hour window. Hospital [facility] Admitted to general medical floor and started on IV ceftriaxone. Over the course of the next 48 hours her mentation appeared to returned to baseline; culture greater than 100,000 mixed delroy however given response to IV antibiotics we will complete a course of oral Ceftin. At this point she is medically acceptable to return to SNF Time Attestation Discharge Coordination Time (in mins): 35 Quality: Safe Use of Opioids Does Pt have an Active Cancer Diagnosis on the Problem List?: No Quality: Stroke Does the patient have a stroke diagnosis?: No Physical Exam Vital Signs: Vital Signs: Last Vital Signs Temp 98.0 F 03/27/25 07:49 Pulse 66 03/27/25 07:49 Resp 18 03/27/25 07:49 BP 129/60 03/27/25 07:49 Pulse Ox 96 03/27/25 07:49 O2 Del Method Room Air 03/27/25 07:49 BMI result Body Mass Index 29.4 Const: Other: Awake confused. Speech slow Resp: Other: Clear to auscultation bilaterally no rales rhonchi or wheezes Cardio: Other: No S4; positive S1-S2; no S3 murmurs rubs or gallops GI: Other: Soft nontender nondistended normoactive bowel sounds Skin: Other: See admitting ER pictures for details Extrem: Other: No edema bilaterally DS: Data Data Completed and Pending Labs on day of discharge: Laboratory Results - last 24 hr 03/26/25 03/26/25 03/27/25 16:17 20:33 06:02 WBC 6.8 RBC 4.08 L Hgb 13.3 Hct 38.3 MCV 93.9 MCH 32.6 MCHC 34.7 RDW 14.7 Plt Count 197 MPV 10.8 Immature Gran % (Auto) 0.1 Neut % (Auto) 42.7 L Lymph % (Auto) 40.6 H [place] % (Auto) 11.5 H Eos % (Auto) 4.4 H Baso % (Auto) 0.7 Lymph # (Auto) 2.8 [place] # (Auto) 0.8 Eos # (Auto) 0.3 Baso # (Auto) 0.1 Abs Immat Gran (auto) 0.01 Absolute Neuts (auto) 2.9 Absolute Nucleated RBC 0.000 Nucleated RBC % (auto) 0.0 Sodium 140 Potassium 3.5 Chloride 108 Carbon Dioxide 25 Anion Gap 11 L BUN 9 Creatinine 0.39 L Estim Creat Clear Calc 161.9 Estimated GFR > 60 POC Glucose 247 H 242 H Fasting Glucose 141 H Calcium 8.4 Total Bilirubin 1.2 H AST 38 H ALT 15 Alkaline Phosphatase 102 Total Protein 5.5 L Albumin 2.3 L 03/27/25 03/27/25 07:34 11:15 WBC RBC Hgb Hct MCV MCH MCHC RDW Plt Count MPV Immature Gran % (Auto) Neut % (Auto) Lymph % (Auto) [place] % (Auto) Eos % (Auto) Baso % (Auto) Lymph # (Auto) [place] # (Auto) Eos # (Auto) Baso # (Auto) Abs Immat Gran (auto) Absolute Neuts (auto) Absolute Nucleated RBC Nucleated RBC % (auto) Sodium Potassium Chloride Carbon Dioxide Anion Gap BUN Creatinine Estim Creat Clear Calc Estimated GFR POC Glucose 140 H 197 H Fasting Glucose Calcium Total Bilirubin AST ALT Alkaline Phosphatase Total Protein Albumin Preliminary micro results at discharge 03/25/25 13:47 Blood Culture - Preliminary Blood - Venous No growth after 24 hours. 03/25/25 13:47 Blood Culture - Preliminary Blood - Venous No growth after 24 hours. Discharge Plan Discharge Anticipated Discharge Date/Time: 03/27/25 12:24 Patient Disposition: er SNF Discharge Diagnosis: Acute UTI Referrals: Candie Richardson MD [Primary Care Provider, Medical] - 1 Week Discharge Medications: New cefuroxime axetil 500 mg tablet 500 mg PO BID 7 Days Qty: 14 0RF Continued acetaminophen 325 mg Tablet 650 mg PO Q4H PRN (Reason: Fever Or Pain) atorvastatin 20 mg tablet 20 mg PO BEDTIME levetiracetam 500 mg tablet 500 mg PO BID melatonin 3 mg Tablet 3 mg PO BEDTIME PRN (Reason: Sleep) bisacodyl 10 mg Suppository 10 mg [place] DAILY PRN (Reason: Constipation) folic acid 1 mg Tablet 1 mg PO DAILY ergocalciferol (vitamin D2) 1,250 mcg (50,000 unit) Capsule 1,250 mcg PO QWEEK nystatin 100,000 unit/gram Powder 1 appl TOPICAL BID Santyl 250 unit/gram Ointment 1 appl TOPICAL DAILY multivitamin with minerals Tablet 1 tab PO DAILY insulin lispro [Humalog KwikPen Insulin] 100 unit/mL insulin pen See Protocol subcut TID Protocol: Insulin Normal Sensitivity 1st 24 hrs Less than or equal to 110 ---- Give (units): 0 111 to 150 Give (units): 0 151 to 200 Give (units): 2 201 to 250 Give (units): 4 251 to 300 Give (units): 6 301 to 350 Give (units): 8 Greater than 350 Give (units): 10 Call MD if Blood Glucose > : 350 Rx Instructions: Inject as directed humalog sliding scale premeals TID as follows 2 units for bs 200-250 4units 251-300 6units 301-1508 uints 351 - 399 call md if bs greater than 400 lactulose 10 gram/15 mL Solution 30 ml PO BID PRN (Reason: if less then 2 bm a day) insulin glargine [Lantus Solostar U-100 Insulin] 100 unit/mL (3 mL) insulin pen 15 unit subcut BEDTIME Discharge Orders: Discharge Order (Routine); Ordered 03/27/25 Ordered By: Walter Monique Diet: Advance to usual diet Activity on Discharge: As tolerated Stand Alone Forms: Patient Portal Discharge page Print Language: Slovenian Care Plan Goals: Resume all meds as listed on transfer sheet Health Concerns: Ceftin 500 mg b.i.d. for 7 days has been added to your regimen. Please complete as ordered Plan of Treatment: As per receiving facility Assessment: See discharge
[2025-03-27 14:38] VITALS: BP 143/65; PULSE 78; RESP 18; TEMP 36.6; O2SAT 93
== END 2025-03-27 15:02 | disposition skilled nursing facility (03) | DRG 463 ==
LOC: HO.ED 15:17 → HO.EDOVER 17:25 → HO.S3 19:01
PROVIDERS: Admitting Provider Hospitalist; Emergency Provider Emergency Medicine; PCP Internal Medicine; Visit Provider Hospitalist
DX: N39.0 Urinary tract infection, site not specified (principal); K76.82 Hepatic encephalopathy; E11.9 Type 2 diabetes mellitus without complications; K74.60 Unspecified cirrhosis of liver; Z20.822 Contact with and (suspected) exposure to COVID-19; Z79.4 Long term (current) use of insulin; Z87.891 Personal history of nicotine dependence; Z79.899 Other long term (current) drug therapy
CPT/HCPCS: 36415; 70450; 80048; 80053; 80076; 81001; 82140; 82803; 82947; 83605; 83735; 83880; 84443; 84484; 85025; 85610; 86140; 87040; 87086; 87637; 92610; 93005; 99285; J0696; J1650; J7120

== ENCOUNTER → 2025-03-25 12:45 | Outpatient (BNV) | payer OTHER, SELFPAY | PROVIDERS: Emergency Provider Emergency Medicine; Visit Provider Radiology Diagnostic Radiology | DX: R47.81 Slurred speech (principal) | CPT/HCPCS: 70450 ==

== ENCOUNTER → 2025-03-25 12:47 | Outpatient (BNV) | payer OTHER, SELFPAY | PROVIDERS: Admitting Provider Hospitalist; Emergency Provider Emergency Medicine; Visit Provider Internal Medicine | DX: R94.31 Abnormal electrocardiogram [ECG] [EKG] (principal); I63.9 Cerebral infarction, unspecified | CPT/HCPCS: 93010 ==

== ENCOUNTER → 2025-03-25 17:07 | Outpatient (BNV) | payer OTHER, SELFPAY | PROVIDERS: Admitting Provider Hospitalist; Emergency Provider Emergency Medicine; Visit Provider Hospitalist | DX: E11.9 Type 2 diabetes mellitus without complications (principal); N39.0 Urinary tract infection, site not specified | CPT/HCPCS: 99223; 99232; 99239 ==

== ENCOUNTER 2025-05-26 18:40 | Inpatient (IN) | payer MEDICAID, SELFPAY ==
--- OUTSIDE RECORDS SUMMARY | 2025-04-16 06:15 | XMS_ITS ---
Author Organization [facility] Address [address] [place] [address] Care Team Providers Care Bottom Crane Operator Name Role Phone Elder Mary Beth HELTON Primary Care Provider Andrea Tidwell Unavailable [phone] Allergies Allergen (clinical drug ingredient) Drug/Non Drug Allergy documented on EMR Reaction Allergy Type Onset Date Status sulfamethoxazole / trimethoprim Bactrim Unknown Drug Allergy Active Penicillin Unknown Drug Allergy Active Substance with sulfonamide structure and antibacterial mechanism of action (substance) Sulfa Antibiotics Unknown Drug Allergy A ctive REASON FOR VISIT NH Follow up visit. Medications Medication SIG (Take, Route, Frequency, Duration) Notes Start Date End Date Status Magnesium 400 MG as directed Orally Unknown Melatonin 3 MG 1 tablet at bedtime as needed Orally Once a day Unknown rifAXIMin 550 MG 1 tablet Orally Twic e a day Unknown Milk of Magnesia 400 MG/5ML 5 mL as need ed Orally Once a day Unknown Multi-Vitamin/Minerals - as directed Orally Unknown Spironolactone 50 MG 1 tablet Orally Onc e a day Unknown Zofran 4 MG 1 tablet Orally 3 times a day As needed Unknown Potassium Chloride 10 MEQ 4 tablet with food Orally 3 times a day Unknown Acetaminophen 325 MG 2 capsule as needed Orally every 6 hrs Unknown Sertraline HCl 50 MG 1 tablet Orally Onc e a day Unknown Glutose 45 40 % as directed Orally Unknown Ergocalciferol 1.25 MG (13957 UT) 1 capsule Orally every Sunday Unknown Fleet Enema - as directed Rectal Unknown Atorvastatin Calcium 20 MG 1 tablet Oral ly Once a day Unknown Bisacodyl 10 MG 1 suppository as nee ded Rectal Once a day Unknown Insulin Lispro 100 UNIT/ML as directed Subcutaneous Unknown Insulin Glargine 100 UNIT/ML as directed Subcutaneous Unk nown Keppra 750 MG 1 tablet Orally ever y 12 hrs Unknown Lactulose Encephalopathy 10 GM/15ML 30 mL as needed Orally Once a day Unknown Encounters Encounter Location Date Provider Diagnosis 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 ; Type 2 diabetes mellitus with diabetic neuropathy, unspecified E11.40 ; Essential (primary) hypertension I10 ; Unspecified cirrhosis of liver K74.60 ; Altered mental status, unspecified R41.82 and Type 2 diabetes mellitus without complications E11.9 Assessments Encounter Date Diagnosis (ICD Code) Assessment Notes Treatment Notes Treatment Clinical Notes Section Notes 04/16/2025 Pressure ulcer of sacral region, stage 3 (ICD-10 - L89.153) 04/16/2025 Pressure ulcer of left hip, stage 3 (ICD-10 - L89.223) 04/16/2025 Non-pressure chronic ulcer of left thigh with fat layer exposed (ICD-10 - L97.122) 04/16/2025 Type 2 diabetes mellitus with diabetic neuropathy, unspecified (ICD-10 - E11.40) 04/16/2025 Essential (primary) hypertension (ICD-10 - I10) 04/16/2025 Unspecified cirrhosis of liver (ICD-10 - K74.60) 04/16/2025 Altered mental status, unspecified (ICD-10 - R41.82) 04/16/2025 Type 2 diabetes mellitus without complications (ICD-10 - E11.9) 04/16/2025 Other [facility]. Nursing staff have been performing her dressing changes regularly and report no new issues related to the wound sites. On exam she now has only 1 open area on her sacrum. The site of the wound has not changed. There is no evidence of any underlying infective process involving the area. After examining the area today I performed debridement of it to remove overlying devitalized tissue that was present. I recommended that we switch to the application of Hydrofera Blue to the wound site and cover it with a dry dressing. Staff will perform her dressing changes daily and additional changes as necessary. They will continue to monitor the area and I will follow-up with her in 2 weeks. If necessary we will consider the application of a wound VAC at that time. Staff also encouraged to apply skin prep to the resolved areas daily for 5 more days. Plan Of Treatment Treatment Notes Assessment Notes Other Today I saw [facility] at the [facility] for her follow-up appointment. Nursing staff have been performing her dressing changes regularly and report no new issues related to the wound sites. On exam she now has only 1 open area on her sacrum. The site of the wound has not changed. There is no evidence of any underlying infective process involving the area. After examining the area today I performed debridement of it to remove overlying devitalized tissue that was present. I recommended that we switch to the application of Hydrofera Blue to the wound site and cover it with a dry dressing. Staff will perform her dressing changes daily and additional changes as necessary. They will continue to monitor the area and I will follow-up with her in 2 weeks. If necessary we will consider the application of a wound VAC at that time. Staff also encouraged to apply skin prep to the resolved areas daily for 5 more days. Next Appt Details Follow Up: 2 Weeks, Reason: Progress Notes * Alice ANDRESDOB: [birth year] (64 yo F)Acc No.[id number]:04/16/2025 [facility] Follow-Up Visit Patient: Alice TERESA Provider: Dalila Hudson MD, MSc, CWSP :1960 A ge:64 Y S ex:Female Date:04/16/2025 Address:[address] [place], [place] [address] [id number] Pcp:Mary Beth Richardson MD Subjective: * Chief Complaints: * 1 . [place] Follow up visit.. * HPI: W ound Care: Alice is a pleasant 64 year-old female who [facility]. She had been sent to the hospital from her previous residence, which was also [facility], because of acute onset of dysphagia, word finding difficulties, and generalized weakness and confusion. She also has an underlying history of epilepsy, type 2 diabetes, depression, hypertension as well as liver cirrhosis. Her symptoms did improve and thereafter she was [facility] the [facility] for [facility]. At the time of arrival to the [facility] she presented with chronic open wounds involving her coccyx left hip and left lateral thigh. She was unable to confirm the onset but stated that they have been present for some time presumably greater than 3 months. Nursing staff have been working with her and performing dress changes based on recommendations from the discharging physician. She is also working with physical therapy. * ROS: G eneral / Constitutional: Patient denies c hills, fatigue, fever, pain. ? M usculoskeletal: Patient denies a rthritis / arthralgia, joint stiffness, swollen joints. C omments P t is presently non ambulatory. P sychiatric: Patient denies d elusions, depressed mood, difficulty sleeping. * Medical History: O ther toxic encephalopathy, Altered mental status, unspecified, Hepatic encephalopathy, Urinary tract infection, site not specified, Unspecified mood [affective] disorder, Weakness, Unspecified cirrhosis of liver, Epilepsy, unspecified, not intractable, without status epilepticus, Type 2 diabetes mellitus without complications, Hyperlipidemia, unspecified, Depression, unspecified, Essential (primary) hypertension, Pressure injury of sacral region, unstageable, Pressure ulcer of sacral region, unspecified stage, Toxic metabolic encephalopathy, Hypomagnesemia, Type 2 diabetes mellitus with diabetic neuropathy, unspecified, Vitamin D deficiency, Thyroid nodule, Unspecified mood [affective] disorder, Hypokalemia. * Medications: U nknown Potassium Chloride 10 MEQ Tablet Extended Release 4 tablet with food Orally 3 times a day , Unknown Zofran 4 MG Tablet 1 tablet Orally 3 times a day As needed, Unknown Spironolactone 50 MG Tablet 1 tablet Orally Once a day , Unknown Sertraline HCl 50 MG Tablet 1 tablet Orally Once a day , Unknown rifAXIMin 550 MG Tablet 1 tablet Orally Twice a day , Unknown Multi-Vitamin/Minerals - Tablet as directed Orally , Unknown Milk of Magnesia 400 MG/5ML Suspension 5 mL as needed Orally Once a day , Unknown Melatonin 3 MG Tablet 1 tablet at bedtime as needed Orally Once a day , Unknown Magnesium 400 MG Tablet as directed Orally , Unknown Lactulose Encephalopathy 10 GM/15ML Solution 30 mL as needed Orally Once a day , Unknown Keppra 750 MG Tablet 1 tablet Orally every 12 hrs , Unknown Insulin Lispro 100 UNIT/ML Solution Cartridge as directed Subcutaneous , Unknown Insulin Glargine 100 UNIT/ML Solution as directed Subcutaneous , Unknown Glutose 45 40 % Gel as directed Orally , Unknown Fleet Enema - Enema as directed Rectal , Unknown Ergocalciferol 1.25 MG (70651 UT) Capsule 1 capsule Orally every Sunday , Unknown Bisacodyl 10 MG Suppository 1 suppository as needed Rectal Once a day , Unknown Atorvastatin Calcium 20 MG Tablet 1 tablet Orally Once a day , Unknown Acetaminophen 325 MG Capsule 2 capsule as needed Orally every 6 hrs , Medication List reviewed and reconciled with the patient * Allergies: B actrim, Penicillin, Sulfa Antibiotics. Objective: * Vitals: * Examination: W ound Assessment: Wound Number: # 1`. Wound Encounter: S [place]. Wound Location: C occyx. Wound Type: S tage 3 Pressure Ulcer. Date Acquired: P atient reports wounds have been present greater than 3 months. (Apx November 2024). Wound Pre-Measurement: 2 .2 x 1.6 x 3.4 cm. Wound Tunneling/Undermining: N o. Wound Status: S table. Wound Thickness: F ull. Wound Exudate Amount: M oderate. Wound Exudate Type: S erosanguinous. Wound Odor: N one. Wound Margin: W ell Defined. Wound Base: S brittany Slough. Wound - Periwound: N ormal. Pain Level: 0 /10. Debridement Type: S urgical. Debridement Time-Out Taken: Y es. Debridement Pain Control: 4 % Lidocaine. Debridement Level: S kin / Subcutaneous Tissue / Muscle / Fascia. Post Debridement Measurements: 2 .2 x 1.7 x 3.5 cm. Wound Area: 3 .74 cm sq. Tissues and other material debrided: M uscle. Devitalized tissue debrided: B iofilm, Fibrin, Slough. Instrument: C urette. Bleeding: M oderate. Hemostasis Achieved: P ressure. Procedural Pain: 2 /10. Post Procedural Pain: 0 /10. Response to Treatment: P rocedure was tolerated well.. W ound Assessment: Wound Number: # 2. Wound Encounter: S katlynnt. Wound Location: L eft hip. Wound Type: S tage 3 Pressure Ulcer. Date Acquired P atient reports wounds have been present greater than 3 months. (Apx November 2024). Wound Pre-Measurement: 0 .0 x 0.0 x 0.0 cm. Wound Status: R esolved. Assessment: * Assessment: 1. P ressure ulcer of sacral region, stage 3 - L89.153 2 . P ressure ulcer of left hip, stage 3 - L89.223 3 . N on-pressure chronic ulcer of left thigh with fat layer exposed - L97.122 4 . T ype 2 diabetes mellitus with diabetic neuropathy, unspecified - E11.40 5 . E ssential (primary) hypertension - I10 ? 6 . U nspecified cirrhosis of liver - K74.60 7 . A ltered mental status, unspecified - R41.82 8 . T ype 2 diabetes mellitus without complications - E11.9 Plan: * Treatment: * Procedure Codes: 1 1043 DEBRIDE TISSUE/MUSCLE, 39790 NURSING FAC CARE SUBSEQ * Follow Up: 2 Weeks * Billing Information: * Visit Code: * Procedure Codes: 16022 DEBRIDE TISSUE/MUSCLE. 40145 NURSING FAC CARE SUBSEQ. * Electronic signature of Vonda Hudson MD on 05/26/2025 at 09:04 PM EDT Sign off status: Pending * Provider: Dalila Hudson MD, MSc, CWSP Date: 0 04/16/2025 Generated for Artur sheppard/Génesis/eTransmitting on: 1 09:04 PM EDT History and Physical Notes * HPI (History of Present Illness) Category Sub-Category Detail Notes Category Not es Wound Care Alice is a [facility] 64 year-old female who was recently submit to the [facility] from the hospital. She had been sent to the hospital from her previous residence, which was also [facility], because of acute onset of dysphagia, word finding difficulties, and generalized weakness and confusion. She also has an underlying history of epilepsy, type 2 diabetes, depression, hypertension as well as liver cirrhosis. Her symptoms did improve and thereafter she was [facility] to the [facility] for [facility]. At the time of arrival to the [facility] she presented with chronic open wounds involving her coccyx left hip and left lateral thigh. She was unable to confirm the onset but stated that they have been present for some time presumably greater than 3 months. Nursing staff have been working with her and performing dress changes based on recommendations from the discharging physician. She is also working with physical therapy. Examination Category Sub-Category Detail Notes Category Not es Wound Assessment Wound Number: #1` Wound Encounter: Subsequent Wound Location: Coccyx Wound Type: Stage 3 Pressure Ulc er Wound Pre-Measurement: 2.2 x 1.6 x 3.4 c m Wound Tunneling/Undermining: No Wound Status: Stable Wound Thickness: Full Wound Exudate Amount: Moderate Wound Exudate Type: Serosanguinous Wound Odor: None Wound Margin: Well Defined Wound Base: Slough Slough Wound - Periwound: Normal Pain Level: 0/10 Debridement Type: Surgical Debridement Time-Out Taken: Yes Debridement Pain Control: 4% Lidocaine Debridement Level: Skin / Subcutaneous Tissue / Muscle / Fascia Post Debridement Measurements: 2.2 x 1.7 x 3.5 cm Tissues and other material debrided: Mus niko Devitalized tissue debrided: Biofilm, Fi brin, Slough Instrument: Curette Bleeding: Moderate Hemostasis Achieved: Pressure Procedural Pain: 2/10 Post Procedural Pain: 0/10 Response to Treatment: Procedure was luisa erated well. Wound Area: 3.74 cm sq Date Acquired: Patient reports woun ds have been present greater than 3 months. (Apx November 2024) Wound Assessment Wound Number: #2 Wound Encounter: Subsequent Wound Location: Left hip Wound Type: Stage 3 Pressure Ulc er Wound Pre-Measurement: 0.0 x 0.0 x 0.0 c m Wound Status: Resolved Date Acquired Patient reports woun ds have been present greater than 3 months. (Apx November 2024)
[2025-05-26] VITALS (7 sets, daily range): BP systolic 120–144; BP diastolic 48–57; PULSE 64–80; RESP 9–26; TEMP 36.6–37.2; O2SAT 88–98; BMI 29.0
--- NOTE | ~2025-05-26 | CT_ITS ---
EXAMINATION: CT HEAD WITHOUT CONTRAST (STROKE PROTOCOL) CLINICAL INFORMATION: Stroke protocol. Difficulty swallowing, facial droop. COMPARISON: 03/25/2025. TECHNIQUE: Contiguous axial imaging was performed from the skull base to vertex without intravenous administration of contrast. This CT examination was performed using dose optimization techniques as appropriate, variously including the following: *Automated exposure control *Adjustment of mA and/or kV according to patient size (this includes techniques or standardized protocols for targeted exams where dose is matched to indication/reason for exam; i.e. extremities or head) *Use of iterative reconstruction technique FINDINGS: There is no evidence of intracranial hemorrhage or extra-axial fluid collection. There is no mass effect, or edema. No CT evidence of acute territorial infarct. Ventricles, sulci, and cisterns are normal in size and configuration for patient age. No hydrocephalus. No midline shift. Negative hyperdense MCA sign. Negative insular ribbon sign. Confluent periventricular and deep white matter hypoattenuation is consistent with moderate to severe small vessel ischemic changes. Normal pituitary. Mild atheromatous calcification of the bilateral carotid siphons and V4 segments vertebral arteries bilaterally. Globes and orbital contents image normally. No extracranial soft tissue abnormalities. The paranasal sinuses, mastoid air cells, and tympanic cavities are normally aerated. Cerumen impaction in the right EAC. No suspicious bony abnormalities. There are no acute fractures evident. CT/CT head for STROKE IMPRESSION: 1. No acute intracranial abnormality. No intracranial hemorrhage or mass effect. No CT evidence of acute territorial infarct. 2. Moderate to severe white matter changes of small vessel ischemia. Preliminary read was provided by Dr. Rubia Landrum to Makayla Lamas of the [facility] at approximately 7:50 PM, 05/26/2025. Electronically signed by: Keny Gibson MD 05/27/2025 08:27 AM EDT
--- NOTE | ~2025-05-26 | CT_ITS ---
EXAMINATION: CT ANGIOGRAM HEAD AND NECK CLINICAL INFORMATION: Difficulty swallowing and facial droop. Stroke protocol. COMPARISON: No prior CTA available. CTA noncontrast head dated earlier same day. TECHNIQUE: Test bolus sequences and head and neck intravenous bolus administration 70 mL of Omnipaque 350. Helical imaging was performed in the axial plane from the aortic arch to the skull vertex. The data was processed at the medicine technologist's workstation for generation of MIP sequences. Angled MIPs and volume rendered reformatted images were also generated at an offline 3D workstation. Stenoses are assessed in accordance with NASCET criteria unless otherwise indicated. This CT examination was performed using dose optimization techniques as appropriate, variously including the following: *Automated exposure control *Adjustment of mA and/or kV according to patient size (this includes techniques or standardized protocols for targeted exams where dose is matched to indication/reason for exam; i.e. extremities or head) *Use of iterative reconstruction technique FINDINGS: NECK CTA: -AORTIC ARCH: Normal in caliber. Mild atheromatous calcification. Three-vessel branching pattern. -GREAT VESSEL ORIGINS: Widely patent. No stenosis. -RIGHT COMMON CAROTID ARTERY: Normal in course and caliber to the level of the bifurcation. -CERVICAL RIGHT INTERNAL CAROTID ARTERY: Mild calcific atherosclerotic disease of the carotid bulb and proximal internal carotid artery without flow-limiting stenosis. -LEFT COMMON CAROTID ARTERY: Normal in course and caliber to the level of the bifurcation. -CERVICAL LEFT INTERNAL CAROTID ARTERY: Mild calcific atherosclerotic disease of the carotid bulb and proximal internal carotid artery without flow-limiting stenosis. -CERVICAL RIGHT VERTEBRAL ARTERY: Codominant. Normal in origin, course and caliber into the skull base. -CERVICAL LEFT VERTEBRAL ARTERY: Normal in origin, course and caliber into the skull base. OTHER, SOFT TISSUES: -No lymphadenopathy or mass. No abnormal fluid collection or soft tissue swelling. -Retropharyngeal course of the right carotid artery. -There are several small thyroid nodules, the largest in the right lobe measuring 10 mm. -Imaged superior mediastinal structures normal. -Imaged lung apices demonstrate mild mosaic attenuation but are otherwise grossly clear. CTA OF THE BRAIN: -INTRACRANIAL INTERNAL CAROTID ARTERIES: Calcific atherosclerotic disease of the intracranial internal carotid arteries without occlusion or flow-limiting stenosis. Normal ophthalmic artery origins. -RIGHT ANTERIOR CEREBRAL ARTERY: Normal A1 segment.. Normal arborization of the distal segments. -LEFT ANTERIOR CEREBRAL ARTERY: Normal A1 segment.. Normal arborization of the distal segments. -ANTERIOR COMMUNICATING ARTERY: Normal. -RIGHT MIDDLE CEREBRAL ARTERY: Normal M1 segment of the MCA without focal stenosis or occlusion. Normal bifurcation. Normal arborization of the distal segments. -LEFT MIDDLE CEREBRAL ARTERY: Normal M1 segment of the MCA without focal stenosis or occlusion. Normal bifurcation. Normal arborization of the distal segments. -RIGHT VERTEBRAL ARTERY V4: Normal in course and caliber. Normal PICA branch. -LEFT VERTEBRAL ARTERY V4: Normal in course and caliber. Normal PICA branch. -BASILAR ARTERY: Normal without focal stenosis or occlusion. Normal appearance of the proximal superior cerebellar arteries. Normal basilar tip. -RIGHT POSTERIOR CEREBRAL ARTERY: Normal P1 segment. Normal opacification of the distal [employer] ADMINISTRATOR segments. -LEFT POSTERIOR CEREBRAL ARTERY: The P1 segment is diminutive. origin of the [employer] ADMIN[employer]RATOR with robust opacification of the posterior communicating artery. Normal opacification of the distal [employer] ADMINISTRATOR segments. -POSTERIOR COMMUNICATING ARTERIES: The left as above. The right is diminutive but visualized. Normal opacification of the superior sagittal, straight, transverse, and sigmoid sinuses. No venous thrombosis. No space-occupying hemorrhage or definite evolving infarct. CT/CT angio head neck STROKE IMPRESSION: CTA NECK: 1. No evidence of significant stenosis, occlusion, dissection, or aneurysm in the major cervical arterial vasculature. Mild atheromatous calcification of the carotid bulbs bilaterally. 2. Multinodular thyroid. CTA HEAD: 1. No evidence of significant stenosis, occlusion, dissection, or aneurysm in the major intracranial arterial vasculature. 2. Major cortical and dural venous sinuses are patent. 3. No space-occupying hemorrhage or evolving infarct identified. A congruent preliminary report was provided by Dr. Rubia Landrum to Dr. Makayla Lamas of the [place] [facility] at approximately 8:00 PM, 05/26/2025. Electronically signed by: Keny Gibson MD 05/27/2025 08:39 AM EDT
--- NOTE | 2025-05-26 19:46 | ECG_ITS ---
Test Reason : stroke Blood Pressure : */* mmHG Vent. Rate : 78 BPM Atrial Rate : 78 BPM P-R Int : 136 ms QRS Dur : 92 ms QT Int : 460 ms P-R-T Axes : 32 -19 10 degrees QTcB Int : 524 ms Normal sinus rhythm Inferior infarct , age undetermined Abnormal ECG When compared with ECG of 25-Mar-2025 13:08, Inferior infarct is now Present Nonspecific T wave abnormality, improved in Anterior leads QT has lengthened Referred By: Makayla Lamas Electronically Signed By: MCKINLEY SANTIZO MD
--- NOTE | 2025-05-26 19:48 | PC.NURSE ---
This grant writer spoke to Mary Beth SENA nurse at [facility] who noted at around 3pm Pt was more lethargic muffled/slurred speech and right side facial droop . The 7am-3am nurse reported to Tonie that Pt was slightly off then baseline. She also reports Pt had a low grade temp of 99.0 since this AM. Nurse reports that at baseline Pt is verbal and walks with assistance and walker. Per facility nurse Pt was not at her baseline last night, no LWKT reported.
[2025-05-26] MEDS: iohexoL 350 MG/ML 100 ML INFUS..BTL IV (19:56)
[2025-05-26 20:01] LABS: MANUAL DIFF FLAG NO
[2025-05-26 20:03] LABS: Hematocrit 38.7 % (37.0-47.0); Hemoglobin 13.3 g/dl (12.0-16.0); Imm Gran Abs Auto 0.02 X10*3/uL (0.00-0.03); Imm Gran Pct Auto 0.4 % (0.0-0.4); Lymphocytes Absolute Auto 1.8 X10*3/uL (1.2-4.9); Mean Corpuscular HGB Conc 34.4 g/dl (31.0-35.0); Mean Corpuscular Hemoglobin 32.8 pg (27.0-33.0); Mean Corpuscular Volume 95.6 fL (80.0-98.0); NRBC Abs Auto 0.000 X10*3/uL (0.0-0.012); NRBC Pct Auto 0.0 /100WBC (0.0-0.2); Platelet Count 159 X10*3/uL (160-400); Red Blood Count 4.05 X10*6/uL (4.20-5.50); White Blood Count 5.7 X10*3/uL (4.8-10.8)
[2025-05-26 20:09] LABS: INTERNATIONAL NORM RATIO 1.4 (0.9-1.1); Prothrombin Time 15.6 SEC (10.9-12.4)
[2025-05-26 20:26] LABS: Alanine Aminotransferase 12 U/L (0-31); Albumin Level 2.5 g/dL (3.5-5.0); Alkaline Phosphatase 115 U/L (39-117); Anion Gap 12 (12-20); Aspartate Amino Transferase 36 U/L (5-31); Blood Urea Nitrogen 16 mg/dL (9-16); Calcium 8.2 mg/dL (8.4-10.2); Carbon Dioxide 26 mmol/L (22-29); Chloride 110 mmol/L (96-108); Creatinine Clr Calc Pharmacy 108.3; Estimated Glomerular Filt Rate > 60; Magnesium 1.9 mg/dL (1.6-2.6); Potassium 3.6 mmol/L (3.3-5.1); Sodium 144 mmol/L (135-145); Total Protein 5.6 g/dL (6.5-8.0)
[2025-05-26 20:32] LABS: Appearance Urine Clear; Glucose Urine UA Negative (Negative); PH 5.0 (5.0-9.0); Specific Gravity - Urine >= 1.030 (1.005-1.025); UMIC TRIGGER UACC YES
[2025-05-26 20:37] LABS: Cannabinoid Screen Urine Not Detected (Not Detect)
[2025-05-26 20:38] LABS: Troponin-I High Sensitivity 51.6 ng/L (<3.5-17.0)
[2025-05-26 20:39] LABS: Resp Syncy Virus RNA Qual PCR NEGATIVE (Negative); SARS COV2 PCR INHOUSE NEGATIVE (Negative)
[2025-05-26 20:59] LABS: UACC Culture Trigger YES
--- OUTSIDE RECORDS SUMMARY | 2025-05-26 21:04 | XMS_ITS | Patient Health Record ---
Author Organization [facility] Address [address] [facility] [address] [place] [address] Care Team Providers Care Data Control Clerk Name Role Phone Elder Mary Beth HELTON Primary Care Provider Andrea Tidwell Unavailable [phone] Allergies Allergen (clinical drug ingredient) Drug/Non Drug Allergy documented on EMR Reaction Allergy Type Onset Date Status sulfamethoxazole / trimethoprim Bactrim Unknown Drug Allergy Active Penicillin Unknown Drug Allergy Active Substance with sulfonamide structure and antibacterial mechanism of action (substance) Sulfa Antibiotics Unknown Drug Allergy A ctive Reason For Referral No Information Medications Medication SIG (Take, Route, Frequency, Duration) Notes Start Date End Date Status Spironolactone 50 MG 1 tablet Orally Onc e a day Unknown Glutose 45 40 % as directed Orally Unknown Zofran 4 MG 1 tablet Orally 3 times a day As needed Unknown Insulin Glargine 100 UNIT/ML as directed Subcutaneous Unk nown Potassium Chloride 10 MEQ 4 tablet with food Orally 3 times a day Unknown Insulin Lispro 100 UNIT/ML as directed Subcutaneous Unknown Keppra 750 MG 1 tablet Orally ever y 12 hrs Unknown Lactulose Encephalopathy 10 GM/15ML 30 mL as needed Orally Once a day Unknown Magnesium 400 MG as directed Orally Unknown Melatonin 3 MG 1 tablet at bedtime as needed Orally Once a day Unknown Acetaminophen 325 MG 2 capsule as needed Orally every 6 hrs Unknown Atorvastatin Calcium 20 MG 1 tablet Oral ly Once a day Unknown Milk of Magnesia 400 MG/5ML 5 mL as need ed Orally Once a day Unknown Multi-Vitamin/Minerals - as directed Orally Unknown Bisacodyl 10 MG 1 suppository as nee ded Rectal Once a day Unknown rifAXIMin 550 MG 1 tablet Orally Twic e a day Unknown Ergocalciferol 1.25 MG (25660 UT) 1 capsule Orally every Sunday Unknown Sertraline HCl 50 MG 1 tablet Orally Onc e a day Unknown Fleet Enema - as directed Rectal Unknown Social History Household Question Answer Notes Marital status: Problems Problem Type SNOMED Code ICD Code Onset Dates Problem Status W/U Status Risk Notes Problem Diabetic peripheral neuropathy associated with type 2 diabetes mellitus (7494083016776) Type 2 diabetes mellitus with diabetic neuropathy, unspecified (E11.40) Active confirmed Problem Type II diabetes mellitus without complication (209957001) Type 2 diabetes mellitus without complications (E11.9) Active confirmed Problem Hyperlipidemia (37176629) Hyperlipidemia, unspecified (E78.5) Active confirmed Problem Hypomagnesemia (790207808) Hypomagnesemia (E83.42) Active confirmed Problem Affective psychosis (099473602) Unspecified mood [affective] disorder (F39) Active confirmed Problem Epilepsy (58756159) Epilepsy, unspecified, not intractable, without status epilepticus (G40.909) Active confirmed Problem Essential hypertension (95098505) Essential (primary) hypertension (I10) Active confirmed Problem Cirrhosis of liver (24514249) Unspecified cirrhosis of liver (K74.60) Active confirmed Problem Pressure injury of sacral region of back stage III (disorder) (55639680179401) Pressure ulcer of sacral region, stage 3 (L89.153) Active confirmed Problem Pressure injury of sacral region of back (disorder) (878643149) Pressure ulcer of sacral region, unspecified stage (L89.159) Active confirmed Problem Pressure ulcer o f left hip, stage 3 (L89.223) Active confirmed Problem Ulcer of thigh (402997400) 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) Active confirmed Problem Altered mental status (776419806) Altered mental status, unspecified (R41.82) Active confirmed Problem Toxic encephalopathy (disorder) (10623870) 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) Active confirmed Problem Hepatic encephalopathy (61194985) Hepatic encephalopathy (K76.82) Active confirmed Problem Vitamin D deficiency (15333821) Vitamin D deficiency (E55.9) Active confirmed Problem Toxic metabolic encephalopathy (295068861) Toxic metabolic encephalopathy (G92.8) Active confirmed Problem Thyroid nodule (858281911) Thyroid nodule (E04.1) Active confirmed Encounters Encounter Location Date Provider Diagnosis [place] [address] [address] [place] 04/16/2025 Andrea Waien Pressure ulcer of sacral region, stage 3 [...] Type 2 diabetes mellitus without complications E11.[address] [address] 02/19/2025 Andrea Waien Pressure ulcer of sacral region, stage 3 [...] Type 2 diabetes mellitus without complications E11.[address] [address] 03/19/2025 Andrea Waien Pressure ulcer of sacral region, stage 3 [...] Type 2 diabetes mellitus without complications E11.[address] [address] 04/30/2025 Andrea Waien Pressure ulcer of sacral region, stage 3 [...] Type 2 diabetes mellitus without complications E11.9 [place] [address] [facility] [place] 05/07/2025 Andrea Waien Pressure ulcer of sacral region, stage 3 [...] Type 2 diabetes mellitus without complications E11.9 [place] [address] [address] [place] 05/14/2025 Andrea Waien Pressure ulcer of sacral region, stage 3 [...] Treatment Notes Treatment Clinical Notes Section Notes 02/19/2025 Pressure ulcer of sacral region, stage 3 (ICD-10 - L89.153) 03/19/2025 Pressure ulcer of sacral region, stage 3 (ICD-10 - L89.153) 04/16/2025 Pressure ulcer of sacral region, stage 3 (ICD-10 - L89.153) 04/30/2025 Pressure ulcer of sacral region, stage 3 (ICD-10 - L89.153) 05/07/2025 Pressure ulcer of sacral region, stage 3 (ICD-10 - L89.153) 05/14/2025 Pressure ulcer of sacral region, stage 3 (ICD-10 - L89.153) 05/14/2025 Pressure ulcer of left hip, stage 3 (ICD-10 - L89.223) 05/07/2025 Pressure ulcer of left hip, stage 3 (ICD-10 - L89.223) 04/30/2025 Pressure ulcer of left hip, stage 3 (ICD-10 - L89.223) 04/16/2025 Pressure ulcer of left hip, stage 3 (ICD-10 - L89.223) 03/19/2025 Pressure ulcer of left hip, stage 3 (ICD-10 - L89.223) 02/19/2025 Pressure ulcer of left hip, stage 3 (ICD-10 - L89.223) 02/19/2025 Non-pressure chronic ulcer of left thigh with fat layer exposed (ICD-10 - L97.122) 03/19/2025 Non-pressure chronic ulcer of left thigh with fat layer exposed (ICD-10 - L97.122) 04/16/2025 Non-pressure chronic ulcer of left thigh with fat layer exposed (ICD-10 - L97.122) 04/30/2025 Non-pressure chronic ulcer of left thigh with fat layer exposed (ICD-10 - L97.122) 05/07/2025 Non-pressure chronic ulcer of left thigh with fat layer exposed (ICD-10 - L97.122) 05/14/2025 Non-pressure chronic ulcer of left thigh with fat layer exposed (ICD-10 - L97.122) 05/14/2025 Type 2 diabetes mellitus with diabetic neuropathy, unspecified (ICD-10 - E11.40) 05/07/2025 Type 2 diabetes mellitus with diabetic neuropathy, unspecified (ICD-10 - E11.40) 04/30/2025 Type 2 diabetes mellitus with diabetic neuropathy, unspecified (ICD-10 - E11.40) 04/16/2025 Type 2 diabetes mellitus with diabetic neuropathy, unspecified (ICD-10 - E11.40) 03/19/2025 Type 2 diabetes mellitus with diabetic neuropathy, unspecified (ICD-10 - E11.40) 02/19/2025 Type 2 diabetes mellitus with diabetic neuropathy, unspecified (ICD-10 - E11.40) 02/19/2025 Essential (primary) hypertension (ICD-10 - I10) 03/19/2025 Essential (primary) hypertension (ICD-10 - I10) 04/16/2025 Essential (primary) hypertension (ICD-10 - I10) 04/30/2025 Essential (primary) hypertension (ICD-10 - I10) 05/07/2025 Essential (primary) hypertension (ICD-10 - I10) 05/14/2025 Essential (primary) hypertension (ICD-10 - I10) 05/14/2025 Unspecified cirrhosis of liver (ICD-10 - K74.60) 05/07/2025 Unspecified cirrhosis of liver (ICD-10 - K74.60) 04/30/2025 Unspecified cirrhosis of liver (ICD-10 - K74.60) 04/16/2025 Unspecified cirrhosis of liver (ICD-10 - K74.60) 03/19/2025 Unspecified cirrhosis of liver (ICD-10 - K74.60) 02/19/2025 Unspecified cirrhosis of liver (ICD-10 - K74.60) 02/19/2025 Altered mental status, unspecified (ICD-10 - R41.82) 03/19/2025 Altered mental status, unspecified (ICD-10 - R41.82) 04/16/2025 Altered mental status, unspecified (ICD-10 - R41.82) 04/30/2025 Altered mental status, unspecified (ICD-10 - R41.82) 05/07/2025 Altered mental status, unspecified (ICD-10 - R41.82) 05/14/2025 Altered mental status, unspecified (ICD-10 - R41.82) 05/14/2025 Type 2 diabetes mellitus without complications (ICD-10 - E11.9) 05/07/2025 Type 2 diabetes mellitus without complications (ICD-10 - E11.9) 04/30/2025 Type 2 diabetes mellitus without complications (ICD-10 - E11.9) 04/16/2025 Type 2 diabetes mellitus without complications (ICD-10 - E11.9) 03/19/2025 Type 2 diabetes mellitus without complications (ICD-10 - E11.9) 02/19/2025 Type 2 diabetes mellitus without complications (ICD-10 - E11.9) 04/16/2025 Other Today I saw Alice at the custodial for her follow-up appointment. Nursing staff have [...] resolved areas daily for 5 more days. 02/19/2025 Other Today I saw Alice at the custodial for her initial evaluation and management of her chronic open wounds. As mentioned she was recently discharged to the custodial from the hospital. On exam today she is reported to be afebrile, we then removed the dressings and examined the wound sites. She has a large open area on her coccyx, it is a stage III pressure ulcer. The wound has devitalized tissue covering the base. There is mild erythema surrounding the wound area but no evidence of any foul odor, purulent drainage or any other overt signs to suggest an underlying infective process. After examining this area I performed debridement of it as outlined. She tolerated the procedure well. I recommended that we apply gauze soaked in Dakin's solution to the wound base along with zinc to the periwound area and cover it with a dry dressing. I then examined the wound on her left hip it is a stage III pressure ulcer. Again, there is no evidence of any purulent drainage, foul odor or any other signs to suggest an underlying infective process. After examining this area I performed debridement of it as outlined to remove devitalized tissue that was present. She tolerated the procedure well. I recommended the application of calcium alginate with silver to this area along with zinc to the periwound area and covering it with a dry dressing. She also has a small pinpoint, not pressure opening/ulcer on her left lateral thigh. There was a small amount of drainage noted with evidence surrounding erythema. There was however no foul odor and no sign of an underlying infective process. I did not perform any debridement of this area I recommended the application of calcium alginate with silver. Zinc was applied to the periwound area and the site covered with a dry dressing. Staff will performing her dressing changes daily and additional changes as necessary. They will also continue to monitor the sites and continue to offload and reposition her frequently. She will also continue to work with physical therapy. I will follow-up with her in 2 weeks. 03/19/2025 Other Today I saw Alice for her follow-up appointment. I last saw her 3 weeks ago. Nursing staff report no new issues related to the wound sites. On exam she is reported to be afebrile, we then removed the dressings and I examined the wound sites. The wound on her left lateral thigh has resolved. She however continues to have an open area involving her coccyx as well as left hip. There was devitalized tissue present at both wound sites but no evidence of any underlying infective process. After examining both areas I performed debridement of them as outlined. She tolerated the procedures well. We will continue with the use of calcium alginate with silver. It was applied onto the wound base along with zinc to the periwound areas and the sites covered with a dry dressing. She will continue to have dressing changes performed daily and additional changes as necessary. Staff will also continue to offload and reposition her frequently. I will follow-up with her next week. 04/30/2025 Other Today I saw Alice at the custodial for her follow-up appointment. I last saw her 2 weeks ago. Nursing staff have been performing her dressing changes regularly and report no new issues related to the wound on her coccyx. On exam she continues to have an open area involving her coccyx as outlined. There was devitalized tissue covering the base but no evidence of any foul order, purulent drainage or any other signs to suggest an underlying infective process. After examining the area I performed debridement of it as outlined. She tolerated the procedure well. Given the depth of the wound site and the lack of improvement with the current management plan I recommended that we should switch over to the application of a wound VAC. Nursing staff will apply the wound VAC and perform wound VAC changes regularly. They will also monitor the are and offload her regularly. I will follow-up with her next week. 05/07/2025 Other Today I saw Alice at the [facility] for her follow-up appointment. Nursing staff report no new issues related to the wound site. Unfortunately her wound VAC arrived only yesterdayyesterday and in the interim staff have been performing her dressing changes as previously ordered. On exam he remains afebrile and the remainder of vital signs are within normal limits. We then removed the dressings and I examined the wound area. She continues to have a stable deep wound on her sacrum as outlined. There was evidence of devitalized tissue covering the base and the howell the wound. After examining the area I performed debridement of it as outlined. She tolerated the procedure. Today we applied the wound VAC. Staff will perform her wound VAC changes regularly and they continue to offload the area and encourage her to offload her reposition herself frequently. I will follow-up with her next week. 05/14/2025 Other Today I saw Alice at the custodial for her follow-up appointment. Nursing staff report that the wound VAC was applied to the wound last week and she has been tolerating it well. On exam she is reported to be afebrile, we then removed the dressing and examined the wound site. Overall the size of the wound is slowly improving. It remains quite deep at 1.7 cm. There was devitalized tissue present which I debrided as outlined. She tolerated the procedure. We then reapplied the wound VAC. She will continue to have regular wound VAC changes performed and the sites monitored. Staff will also continue to offload her regularly. She will be followed next week by another provider. Plan Of Treatment No Information Insurance Providers Payer Name Payer Address Payer Phone Subscriber Number Group Number Insured Name Patient Relationship to Insured Coverage Start Date Coverage End Date [facility] [address] [place], [place] [id number] Alice Andres Self - patient is the insured 3 5 [facility] (Medicaid) [address] [place], [place] [id number] Alice Andres Self - patient is the insured 5 Medical (General) History Medical History History ICD Code Other toxic encephalopathy G92.8 Altered mental status, unspecified R41.8 2 Hepatic encephalopathy K76.82 Urinary tract infection, site not specif ied N39.0 Unspecified mood [affective] disorder F3 9 Weakness R53.1 Unspecified cirrhosis of liver K74.60 Epilepsy, unspecified, not intractable, without status epilepticus G40.909 Type 2 diabetes mellitus without complic ations E11.9 Hyperlipidemia, unspecified E78.5 Depression, unspecified F32.A Essential (primary) hypertension I10 Pressure injury of sacral region, unstag eable L89.150 Pressure ulcer of sacral region, unspeci fied stage L89.159 Toxic metabolic encephalopathy G92.8 Hypomagnesemia E83.42 Type 2 diabetes mellitus with diabetic n europathy, unspecified E11.40 Vitamin D deficiency E55.9 Thyroid nodule E04.1 Unspecified mood [affective] disorder F3 9 Hypokalemia E87.6
[2025-05-26 22:01] LABS: Reflex Lactate? Lactic Acid Added
[2025-05-26 22:36] LABS: ~Lactic Acid-LAB USE ONLY 1.6 mmol/L (0.5-2.0)
--- NOTE | 2025-05-26 23:44 | PC.NURSE ---
pt noted to desat to 88% on room air while sleeping. placed pt on 2L NC with improvement to 96% O2 sat.
--- NOTE | 2025-05-26 23:51 | ED.GENADULT ---
HPI - General Adult General Chief complaint: General Medical Stated complaint: coming from snf, ?sepsis, rt side face droop Time Seen by Provider: 05/26/25 20:03 Source: EMS Mode of arrival: EMS Limitations: altered mental status History of Present Illness ED Provider: Dr. Makayla Lamas HPI narrative: Patient comes to the emergency room from [facility]. According to EMS, patient is alert and oriented x4, uses a walker to ambulate. According to EMS, they were informed that the patient was seen well the last time yesterday with muffle speech, right-sided mouth drooping, not answering questions appropriately. On arrival, patient is awake, answers no to most questions or I do not know. Patient's seems to have trouble following commands. We called the patient's correction. It is very unclear when was the last time that patient was seen at baseline/well. Per 1 nurse, seems that this was a proximally 24 hours ago, maybe more, per another nurse, the last well known was sometime yesterday but declining at 07:00 and really bad at 15:00. We had to make multiple phone calls to get a story but we still do not have a clear time of last known well time Related Data Home Medications ?Medication ?Instructions ?Recorded ?Confirmed acetaminophen 325 mg tablet 650 mg PO Q4H PRN Fever Or Pain 03/25/25 03/25/25 atorvastatin 20 mg tablet 20 mg PO BEDTIME 03/25/25 03/25/25 bisacodyl 10 mg rectal suppository 10 mg NC DAILY PRN Constipation 03/25/25 03/25/25 collagenase clostridium histo. 250 1 appl topical DAILY 03/25/25 03/25/25 unit/gram topical ointment (Santyl) ergocalciferol (vitamin D2) 1,250 1,250 mcg PO QWEEK 03/25/25 03/25/25 mcg (50,000 unit) capsule folic acid 1 mg tablet 1 mg PO DAILY 03/25/25 03/25/25 insulin glargine 100 unit/mL (3 15 unit subcut BEDTIME 03/25/25 03/25/25 mL) subcutaneous pen (Lantus Solostar U-100 Insulin) insulin lispro 100 unit/mL See Protocol subcut TID 03/25/25 03/25/25 subcutaneous pen (Humalog KwikPen (U-100) Insulin) lactulose 10 gram/15 mL oral 30 ml PO BID PRN if less then 2 bm 03/25/25 03/25/25 solution a day levetiracetam 500 mg tablet 500 mg PO BID 03/25/25 03/25/25 melatonin 3 mg tablet 3 mg PO BEDTIME PRN Sleep 03/25/25 03/25/25 multivitamin with minerals 1 tab PO DAILY 03/25/25 03/25/25 nystatin 100,000 unit/gram topical 1 appl topical BID 03/25/25 03/25/25 powder Previous Rx's ?Medication ?Instructions ?Recorded cefuroxime axetil 500 mg tablet 500 mg PO BID 7 days #14 tabs 03/27/25 Allergies Allergy/AdvReac Type Severity Reaction Status Date / Time Penicillins Allergy Unknown Verified 05/26/25 19:38 Sulfa (Sulfonamide Allergy Unknown Verified 05/26/25 19:38 Antibiotics) sulfamethoxazole (From Allergy Unknown Verified 05/26/25 19:38 Bactrim) trimethoprim (From Bactrim) Allergy Unknown Verified 05/26/25 19:38 Review of Systems Review of Systems: Yes Unobtainable due to mental status PMFSH Past Medical History Medical History Sacral ulcer Mood disorder Cirrhosis Hepatic encephalopathy Seizures Diabetes Social History Social History Housing: Assisted Living Facility Patient Tobacco Use Status: Former Tobacco user Advance Directives: Yes Advance Directives on File: Yes Advance Directives Date on File: 03/30/25 service: No Physical Exam ED Exam Exam: Appearance: Alert. Answering I do not no to every question and labs Eyes: Pupils equal, round and reactive to light. ENT: Pharynx normal. Obvious mouth droop on the right side. However, patient does not have lower teeth Neck: Normal inspection. Neck supple. No lymph nodes noted. No crepitus CVS: Normal heart rate and rhythm. Pulses normal. Normal S1 and S2 Respiratory: No respiratory distress. Breath sounds normal. No Wheezing. No rales Abdomen: Soft and nontender. No rigidity. No distention. Skin: Skin warm and dry. Normal skin color. Normal skin turgor. Extremities: No lower extremity edema. No Lacerations. No Rash Neuro: Very difficult to assess, patient not following commands. Patient is barely moving upper and lower extremities. Psych: calm, cooperative Vital Signs: Vital Signs - 24 hr 05/26/25 19:34 05/26/25 20:19 05/26/25 21:08 Temperature 98.9 F 97.8 F 98.3 F Pulse Rate 80 76 70 Respiratory Rate 14 26 H 9 L Blood Pressure 144/57 H 130/55 L 131/52 L Pulse Oximetry 97 97 98 Oxygen Delivery Method Room Air Room Air Room Air Oxygen Flow Rate 05/26/25 22:02 05/26/25 22:15 05/26/25 23:19 Temperature 98.3 F 98.4 F Pulse Rate 75 71 67 Respiratory Rate 18 11 L 17 Blood Pressure 126/48 L 120/57 L 126/52 L Pulse Oximetry 98 97 97 Oxygen Delivery Method Room Air Room Air Room Air Oxygen Flow Rate 05/26/25 23:43 05/26/25 23:43 Temperature Pulse Rate 66 64 Respiratory Rate 12 15 Blood Pressure Pulse Oximetry 88 L 96 Oxygen Delivery Method Nasal Cannula Nasal Cannula Oxygen Flow Rate 2 BMI result Body Mass Index 29.0 NIH Stroke Scale Internal: Initial- Upon Arrival Level of Consciousness: Alert Level of Consciousness Questions: Answers neither question correctly Level of Consciousness Commands: Performs neither task correctly Best Gaze: Normal Visual: No visual loss Facial Palsy: Minor paralyis Motor Arm (Right): Drift Motor Arm (Left): Drift Motor Leg (Right): Drift Motor Leg (Left): Drift Limb Ataxia: Absent Sensory: Normal Best Language: No aphasia Dysarthia: Normal Extinction and Inattention: No abnormality Score: 9 Course Course Course Narrative: On arrival, patient's NIH score is 9. However, this is likely because the patient is having trouble following commands. It is very unclear when was the last time that patient was in well. Putting all the pieces together, sounds that the last time the patient was actually seen okay was yesterday, close to 25 hours ago. According to the nurse that started noticing something ?abnormal? in the patient, was yesterday ?in the evening?. We called again to try to determine what evening meant to them. Earlier imaging versus late evening. The answer was just again as unclear as the whole history Patient is definitely out of the TNK window. But were still trying to figure out if we are in the thrombectomy window. Overall, we have no real answer when the patient was seen well at this Additionally, we are on an unscheduled down time, we can not put orders in the system, with a have Internet to send the images to real Radiology and with a have a radiologist in-house We decided to start the images and in the meantime, one of our radiologist, Dr. Landrum came from home to help us get the radiology reports red I discussed with Dr. Landrum from Radiology the CAT scans. No obvious abnormality patient's CT head or CTA, no obvious large vessel occlusion Medications Administered Generic Name Dose Route Start Last Admin Trade Name Freq PRN Reason Stop Dose Admin Ceftriaxone Sodium 1 gm 05/27/25 00:00 05/27/25 00:53 Ceftriaxone Sodium 1 Gm Vial IVPUSH 1 gm Q24H YONNY Administration Heparin Sodium (Porcine) 5,000 unit 05/27/25 00:00 05/27/25 00:53 Heparin Sodium,Porcine 5,000 Unit/Ml Vial SUBCUT 5,000 unit Q8H YONNY Administration Insulin Human Lispro 0 unit 05/27/25 00:15 05/27/25 01:19 Insulin Lispro 100 Unit/Ml 3 Ml Vial SUBCUT 2 unit Q6H YONNY Administration Protocol Discontinued Medications Generic Name Dose Route Start Last Admin Trade Name Freq PRN Reason Stop Dose Admin Sodium Chloride 1,000 mls @ 999 mls/hr 05/26/25 21:15 05/26/25 22:15 Ns IV 05/26/25 22:15 Infused .Q1H1M YONNY Infusion Iohexol 100 ml 05/26/25 19:56 05/26/25 19:56 Iohexol 350 Mg/Ml 100 Ml Infus..Btl IV 05/26/25 19:57 70 ml ONCE ONE Administration Lactulose 30 gm 05/27/25 00:43 05/27/25 00:53 Lactulose 20 Gm/30 Ml Solution PO 05/27/25 00:44 30 gm ONCE ONE Administration Levetiracetam 500 mg 05/27/25 00:10 05/27/25 00:53 Levetiracetam 500 Mg Tablet PO 500 mg BID YONNY Administration Levetiracetam 250 mg 05/27/25 00:53 05/27/25 01:20 Levetiracetam 250 Mg Tablet PO 05/27/25 00:54 250 mg ONCE ONE Administration Medical Decision Making Medical Decision Making MDM Narrative: My interpretation of labs: No significant abnormality in patient's hematology or chemistry, no significant abnormality, patient's troponin is 51 which is chronic for the patient, lactulose is 94. Patient has no history of liver disease and LFTs are normal. TSH within normal limit UTI has a large amount of squamous epithelial cells, no definitive for UTI. However, unclear why the patient's ammonia is elevated Differential Diagnosis Differential Diagnoses: The differential diagnosis associated with the presentation includes (Encephalopathy, CVA, stroke, TIA, UTI) Admission/Observation Consideration of admission/observation: Escalation of care including admission/observation considered Consult Healthcare Provider Management of the patient was discussed with: Hospitalist Lab Data [facility] Lab Attestation statement: I reviewed the patient's lab results. 05/26/25 19:52 05/26/25 19:52 Labs: Lab Results 05/26/25 05/26/25 05/26/25 Range/Units 19:52 19:58 20:21 WBC 5.7 (4.8-10.8) X10*3/uL RBC 4.05 L (4.20-5.50) X10*6/uL Hgb 13.3 (12.0-16.0) g/dl Hct 38.7 (37.0-47.0) % MCV 95.6 (80.0-98.0) fL MCH 32.8 (27.0-33.0) pg MCHC 34.4 (31.0-35.0) g/dl RDW 15.1 (11.0-16.0) % Plt Count 159 L (160-400) X10*3/uL MPV 10.3 (9.4-12.3) fL Immature Gran % (Auto) 0.4 (0.0-0.4) % Neut % (Auto) 49.3 (45-73) % Lymph % (Auto) 31.8 (20-40) % [place] % (Auto) 14.8 H (2-11) % Eos % (Auto) 2.6 (0-4) % Baso % (Auto) 1.1 (0-2) % Lymph # (Auto) 1.8 (1.2-4.9) X10*3/uL [place] # (Auto) 0.8 (0.1-1.2) X10*3/uL Eos # (Auto) 0.2 (0.0-0.4) X10*3/uL Baso # (Auto) 0.1 (0.0-0.2) X10*3/uL Abs Immat Gran (auto) 0.02 (0.00-0.03) X10*3/uL Absolute Neuts (auto) 2.8 (2.0-8.3) x10*3/uL Absolute Nucleated RBC 0.000 (0.0-0.012) X10*3/uL Nucleated RBC % (auto) 0.0 (0.0-0.2) /100WBC PT 15.6 H (10.9-12.4) SEC INR 1.4 H (0.9-1.1) Sodium 144 (135-145) mmol/L Potassium 3.6 (3.3-5.1) mmol/L Chloride 110 H (96-108) mmol/L Carbon Dioxide 26 (22-29) mmol/L Anion Gap 12 (12-20) BUN 16 (9-16) mg/dL Creatinine 0.60 (0.5-1.4) mg/dL Estim Creat Clear Calc 108.3 Estimated GFR > 60 Random Glucose 163 H (60-115) mg/dL Lactic Acid 2.1 H* (0.5-2.0) mmol/L Lactic Acid F/U @ 2Hr (0.5-2.0) mmol/L Calcium 8.2 L (8.4-10.2) mg/dL Magnesium 1.9 (1.6-2.6) mg/dL Total Bilirubin 1.4 H (0.0-1.0) mg/dL Direct Bilirubin 0.5 (0.0-0.5) mg/dL AST 36 H (5-31) U/L ALT 12 (0-31) U/L Alkaline Phosphatase 115 (39-117) U/L Troponin I High Sens 51.6 H* (<3.5-17.0) ng/L Total Protein 5.6 L (6.5-8.0) g/dL Albumin 2.5 L (3.5-5.0) g/dL TSH 0.49 (0.32-4.0) uIU/mL Urine Color Dark Yellow Urine Appearance Clear Urine pH 5.0 (5.0-9.0) Ur Specific [place] >= 1.030 H (1.005-1.025) Urine Protein Negative (Neg-Trace) mg/dL Urine Glucose (UA) Negative (Negative) mg/dL Urine Ketones Negative (Negative) mg/dL Urine Blood Negative (Negative) Urine Nitrite Negative (Negative) Ur Leukocyte Esterase Small (1+) H (Negative) Urine RBC 0-2 (0-2) /HPF Urine WBC 11-20 (0-5) /HPF Ur Squamous Epith Cells >20 (0-2) /HPF Urine Bacteria None Seen (None Seen) Hyaline Casts 3-5 (0-2) /LPF Urine Opiates Screen Not Detected (Not Detect) Ur Buprenorphine Scrn Not Detected (Not Detect) ng/mL Ur Oxycodone Screen Not Detected (Not Detect) ng/mL Urine Methadone Screen Not Detected (Not Detect) ng/mL Urine Fentanyl Screen Not Detected (Not Detect) Ur Barbiturates Screen Not Detected (Not Detect) Ur Phencyclidine Scrn Not Detected (Not Detect) Ur Amphetamines Screen Not Detected (Not Detect) U Benzodiazepines Scrn Not Detected (Not Detect) Urine Cocaine Screen Not Detected (Not Detect) U Marijuana (THC) Screen Not Detected (Not Detect) Ethyl Alcohol < 10 mg/dL Influenza Type A (PCR) NEGATIVE (Negative) Influenza Type B (PCR) NEGATIVE (Negative) RSV RNA Qual (PCR) NEGATIVE (Negative) SARS-CoV-2 RNA (RT-PCR) NEGATIVE (Negative) 05/26/25 Range/Units 22:17 WBC (4.8-10.8) X10*3/uL RBC (4.20-5.50) X10*6/uL Hgb (12.0-16.0) g/dl Hct (37.0-47.0) % MCV (80.0-98.0) fL MCH (27.0-33.0) pg MCHC (31.0-35.0) g/dl RDW (11.0-16.0) % Plt Count (160-400) X10*3/uL MPV (9.4-12.3) fL Immature Gran % (Auto) (0.0-0.4) % Neut % (Auto) (45-73) % Lymph % (Auto) (20-40) % [place] % (Auto) (2-11) % Eos % (Auto) (0-4) % Baso % (Auto) (0-2) % Lymph # (Auto) (1.2-4.9) X10*3/uL [place] # (Auto) (0.1-1.2) X10*3/uL Eos # (Auto) (0.0-0.4) X10*3/uL Baso # (Auto) (0.0-0.2) X10*3/uL Abs Immat Gran (auto) (0.00-0.03) X10*3/uL Absolute Neuts (auto) (2.0-8.3) x10*3/uL Absolute Nucleated RBC (0.0-0.012) X10*3/uL Nucleated RBC % (auto) (0.0-0.2) /100WBC PT (10.9-12.4) SEC INR (0.9-1.1) Sodium (135-145) mmol/L Potassium (3.3-5.1) mmol/L Chloride (96-108) mmol/L Carbon Dioxide (22-29) mmol/L Anion Gap (12-20) BUN (9-16) mg/dL Creatinine (0.5-1.4) mg/dL Estim Creat Clear Calc Estimated GFR Random Glucose (60-115) mg/dL Lactic Acid (0.5-2.0) mmol/L Lactic Acid F/U @ 2Hr 1.6 (0.5-2.0) mmol/L Calcium (8.4-10.2) mg/dL Magnesium (1.6-2.6) mg/dL Total Bilirubin (0.0-1.0) mg/dL Direct Bilirubin (0.0-0.5) mg/dL AST (5-31) U/L ALT (0-31) U/L Alkaline Phosphatase (39-117) U/L Troponin I High Sens (<3.5-17.0) ng/L Total Protein (6.5-8.0) g/dL Albumin (3.5-5.0) g/dL TSH (0.32-4.0) uIU/mL Urine Color Urine Appearance Urine pH (5.0-9.0) Ur Specific [place] (1.005-1.025) Urine Protein (Neg-Trace) mg/dL Urine Glucose (UA) (Negative) mg/dL Urine Ketones (Negative) mg/dL Urine Blood (Negative) Urine Nitrite (Negative) Ur Leukocyte Esterase (Negative) Urine RBC (0-2) /HPF Urine WBC (0-5) /HPF Ur Squamous Epith Cells (0-2) /HPF Urine Bacteria (None Seen) Hyaline Casts (0-2) /LPF Urine Opiates Screen (Not Detect) Ur Buprenorphine Scrn (Not Detect) ng/mL Ur Oxycodone Screen (Not Detect) ng/mL Urine Methadone Screen (Not Detect) ng/mL Urine Fentanyl Screen (Not Detect) Ur Barbiturates Screen (Not Detect) Ur Phencyclidine Scrn (Not Detect) Ur Amphetamines Screen (Not Detect) U Benzodiazepines Scrn (Not Detect) Urine Cocaine Screen (Not Detect) U Marijuana (THC) Screen (Not Detect) Ethyl Alcohol mg/dL Influenza Type A (PCR) (Negative) Influenza Type B (PCR) (Negative) RSV RNA Qual (PCR) (Negative) SARS-CoV-2 RNA (RT-PCR) (Negative) ABG Data ABG Results: My interpretation of EKG: Normal sinus rhythm, heart rate 78, no ST segment depression or elevation, no T-wave inversion, QTC 524 Independent Interpretation I performed an independent interpretation of an: EKG and CT Scan Radiology Impression Discussion of test interpretation with radiology: I discussed test interpretation with the radiologist Independent Historian Clinical information obtained from an independent historian. History obtained from or confirmed by: EMS Critical Care Time Critical Care Time Critical Care Time: Yes Total Critical Care Time: 60 Attestation: I have personally provided critical care time. Time includes review of lab data, radiology results, discussion with consultants, and monitoring for potential decompensation. Intervention performed as documented. Discharge Plan Discharge Clinical Impression: Hyperammonemia, Acute hepatic encephalopathy Patient Disposition: Admitted As Inpatient
--- NOTE | 2025-05-27 00:16 | P.HPHOSP_ITS ---
History of Present Illness Date of Service: 05/27/25 Attending physician on admission: Pedro Boggs Chief Complaint: AMS Patient is a 64-year-old female with a past medical history significant for seizure disorder, cirrhosis/hepatic encephalopathy, diabetes, HLD, HTN and confusion at baseline, who presented to the ED from [facility] due to worsening altered mental status over the past 24 hours. At baseline the patient is alert and oriented x3 and uses walker. Patient's nurse noted today from 07:00 to 15:00 that she was declining in mental status and lethargic. She has had muffled/slurred speech as well as a right-sided facial droop. Last known well time is unknown. The pt was unable to provide much history but was very slow to respond. she does not know when her last BM was. no abd pain, chest pain, SOB, nausea, vomiting or UTI sx. Of note, the pt had a previous admission with very similar presentation, was treated with ceftriaxone for suspected UTI, culture was negative, but pt had improvement with abx. Review of Systems 2 Review of Systems: Yes Unobtainable due to mental status [facility], [facility] Medical History Sacral ulcer Mood disorder Cirrhosis Hepatic encephalopathy Seizures Diabetes Functional capacity: uses cane/walker Social History Housing: Assisted Living Facility Patient Tobacco Use Status: Former Tobacco user Advance Directives: Yes Advance Directives on File: Yes Advance Directives Date on File: 03/30/25 service: No Meds Allergies Allergy/AdvReac Type Severity Reaction Status Date / Time Penicillins Allergy Unknown Verified 05/26/25 19:38 Sulfa (Sulfonamide Allergy Unknown Verified 05/26/25 19:38 Antibiotics) sulfamethoxazole (From Allergy Unknown Verified 05/26/25 19:38 Bactrim) trimethoprim (From Bactrim) Allergy Unknown Verified 05/26/25 19:38 Active Medications: Current Medications Acetaminophen (Acetaminophen 325 Mg Tablet) 650 mg PO Q6H PRN PRN Reason: Pain, Mild 1-3,fever,headache Calcium Carbonate (Calcium Carbonate 750 Mg Tab.Chew) 750 mg PO Q4H PRN PRN Reason: Heartburn Ceftriaxone Sodium (Ceftriaxone Sodium 1 Gm Vial) 1 gm IVPUSH Q24H YONNY Dextrose (Dextrose 50 % 25 Gm/50 Ml Syringe) 25 gm IVPUSH Q15M PRN; Protocol PRN Reason: per Hypoglycemia Standing Ord. Glucose (Glucose Gel 15 Gm Gel..Gram.) 15 gm PO Q15M PRN; Protocol PRN Reason: per Hypoglycemia Standing Ord. Heparin Sodium (Porcine) (Heparin Sodium,Porcine 5,000 Unit/Ml Vial) 5,000 unit SUBCUT Q8H YONNY Insulin Human Lispro (Insulin Lispro 100 Unit/Ml 3 Ml Vial) 0 unit SUBCUT Q6H YONNY; Protocol Levetiracetam (Levetiracetam 500 Mg Tablet) 500 mg PO BID YONNY Magnesium Hydroxide (Milk Of Magnesia 30 Ml Oral.Susp) 30 ml PO DAILY PRN PRN Reason: Constipation Magnesium Hydroxide (Milk Of Magnesia 30 Ml Oral.Susp) 30 ml PO DAILY PRN PRN Reason: Constipation Melatonin (Melatonin 3 Mg Tablet) 6 mg PO BEDTIME PRN PRN Reason: Insomnia Sodium Chloride (0.9 % Sodium Chloride Flush 3 Ml Syringe) 3 ml IVFLUSH QSHIFT [facility] Home Medications ?Medication ?Instructions ?Recorded ?Confirmed ?Last Taken ?Type acetaminophen 325 mg tablet 650 mg PO Q4H PRN Fever Or Pain 03/25/25 03/25/25 Unknown History atorvastatin 20 mg tablet 20 mg PO BEDTIME 03/25/25 Unknown History bisacodyl 10 mg rectal suppository 10 mg CA DAILY PRN Constipation 03/25/25 03/25/25 Unknown History collagenase clostridium histo. 250 1 appl topical RENETTA Y 03/25/25 03/25/25 Unknown History unit/gram topical ointment (Santyl) ergocalciferol (vitamin D2) 1,250 1,250 mcg PO QWEEK 0 03/25/25 03/25/25 Unknown History mcg (50,000 unit) capsule folic acid 1 mg tablet 1 mg PO DAILY 03/25/2503/25 Unknown History insulin glargine 100 unit/mL (3 15 unit subcut BEDTIME 03/25/25 03/25/25 Unknown History mL) subcutaneous pen (Lantus Solostar U-100 Insulin) insulin lispro 100 unit/mL See Protocol subcut TID 02/1103/25/25 Unknown History subcutaneous pen (Humalog KwikPen (U-100) Insulin) lactulose 10 gram/15 mL oral 30 ml PO BID PRN if less then 2 bm 03/25/25 03/25/25 Unknown History solution a day levetiracetam 500 mg tablet 500 mg PO BID 03/25/2502/11 Unknown History melatonin 3 mg tablet 3 mg PO BEDTIME PRN Sleep 03/25/25 Unknown History multivitamin with minerals 1 tab PO DAILY 03/25/2502/11 Unknown History nystatin 100,000 unit/gram topical 1 appl topical BID 03/25/25 03/25/25 Unknown History powder Physical Exam 2 Vital Signs and Narrative: Vital Signs: Last Vital Signs Temp 98.4 F 05/26/25 23:19 Pulse 64 05/26/25 23:43 Resp 15 05/26/25 23:43 BP 126/52 L 05/26/25 23:19 Pulse Ox 96 05/26/25 23:43 O2 Del Method Nasal Cannula 05/26/25 23:43 O2 Flow Rate 2 05/26/25 23:43 BMI result Body Mass Index 29.0 General: Alert, oriented to person and place but not month or year, no acute distress. very slow responses Resp: CTA bilaterally CVS: S1, S2, RRR GI: +BS, NT, no distention. asterixis. Skin: Warm, dry Neuro: Cranial nerves II-XII grossly intact bilaterally. Motor grossly intact bilaterally Extremities: No pitting edema Psych: slow responses Results Labs 05/27/25 03:37 05/27/25 03:37 Labs: Laboratory Results - last 24 hr 05/26/25 05/26/25 05/26/25 19:52 19:58 20:21 MCV 95.6 MCH 32.8 MCHC 34.4 RDW 15.1 Plt Count 159 L MPV 10.3 Immature Gran % (Auto) 0.4 Neut % (Auto) 49.3 Lymph % (Auto) 31.8 [place] % (Auto) 14.8 H Eos % (Auto) 2.6 Baso % (Auto) 1.1 Lymph # (Auto) 1.8 [place] # (Auto) 0.8 Eos # (Auto) 0.2 Baso # (Auto) 0.1 Abs Immat Gran (auto) 0.02 Absolute Neuts (auto) 2.8 Absolute Nucleated RBC 0.000 Nucleated RBC % (auto) 0.0 PT 15.6 H INR 1.4 H Anion Gap 12 Estim Creat Clear Calc 108.3 Estimated GFR > 60 Random Glucose 163 H Lactic Acid 2.1 H* Lactic Acid F/U @ 2Hr Calcium 8.2 L Magnesium 1.9 Total Bilirubin 1.4 H Direct Bilirubin 0.5 AST 36 H ALT 12 Alkaline Phosphatase 115 Troponin I High Sens 51.6 H* Total Protein 5.6 L Albumin 2.5 L Urine Color Dark Yellow Urine Appearance Clear Urine pH 5.0 Ur Specific [place] >= 1.030 H Urine Protein Negative Urine Glucose (UA) Negative Urine Ketones Negative Urine Blood Negative Urine Nitrite Negative Ur Leukocyte Esterase Small (1+) H Urine RBC 0-2 Urine WBC 11-20 Ur Squamous Epith Cells >20 Urine Bacteria None Seen Hyaline Casts 3-5 Urine Opiates Screen Not Detected Ur Buprenorphine Scrn Not Detected Ur Oxycodone Screen Not Detected Urine Methadone Screen Not Detected Urine Fentanyl Screen Not Detected Ur Barbiturates Screen Not Detected Ur Phencyclidine Scrn Not Detected Ur Amphetamines Screen Not Detected U Benzodiazepines Scrn Not Detected Urine Cocaine Screen Not Detected U Marijuana (THC) Screen Not Detected Ethyl Alcohol < 10 Influenza Type A (PCR) NEGATIVE Influenza Type B (PCR) NEGATIVE RSV RNA Qual (PCR) NEGATIVE SARS-CoV-2 RNA (RT-PCR) NEGATIVE 05/26/25 22:17 MCV MCH MCHC RDW Plt Count MPV Immature Gran % (Auto) Neut % (Auto) Lymph % (Auto) [place] % (Auto) Eos % (Auto) Baso % (Auto) Lymph # (Auto) [place] # (Auto) Eos # (Auto) Baso # (Auto) Abs Immat Gran (auto) Absolute Neuts (auto) Absolute Nucleated RBC Nucleated RBC % (auto) PT INR Anion Gap Estim Creat Clear Calc Estimated GFR Random Glucose Lactic Acid Lactic Acid F/U @ 2Hr 1.6 Calcium Magnesium Total Bilirubin Direct Bilirubin AST ALT Alkaline Phosphatase Troponin I High Sens Total Protein Albumin Urine Color Urine Appearance Urine pH Ur Specific [place] Urine Protein Urine Glucose (UA) Urine Ketones Urine Blood Urine Nitrite Ur Leukocyte Esterase Urine RBC Urine WBC Ur Squamous Epith Cells Urine Bacteria Hyaline Casts Urine Opiates Screen Ur Buprenorphine Scrn Ur Oxycodone Screen Urine Methadone Screen Urine Fentanyl Screen Ur Barbiturates Screen Ur Phencyclidine Scrn Ur Amphetamines Screen U Benzodiazepines Scrn Urine Cocaine Screen U Marijuana (THC) Screen Ethyl Alcohol Influenza Type A (PCR) Influenza Type B (PCR) RSV RNA Qual (PCR) SARS-CoV-2 RNA (RT-PCR) Assessment and Plan (1) Acute hepatic encephalopathy: Status: Acute (2) Hyperammonemia: Status: Acute (3) Acute UTI: Status: Acute (4) Slurred speech: Status: Acute Plan Patient is a 64-year-old female with a past medical history significant for seizure disorder, cirrhosis/hepatic encephalopathy, diabetes, HLD, HTN and confusion at baseline, who presented to the ED from [facility] due to worsening altered mental status over the past 24 hours. acute hepatic encephalopathy with hyperammonemia - lactulose - repeat ammonia in AM acute UTI - ceftriaxone pending culture slurred speech, likely due to hepatic encephalopathy. CVA w/u due to reported facial droop - MRI brain - echo - lipid panel - neuro consult seizure disorder - keppra cirrhosis - lactulose, spironolactone DM - sliding scale - redued dose lantus 18U QHS HLD - statin HTN - spironolactone full code VTE prophy: heparin pt with AMS, acute hepatic encephalopathy and UTI requiring admission for at least 2 midnights stay for further evaluation and monitoring. Quality Stroke Does the patient have a stroke diagnosis?: No VTE Prior VTE?: No VTE Risk Level:: Medical - moderate - high VTE Device Contraindication: Treatment Not Indicated VTE Drug Contraindication: N/A - Med Ordered
[2025-05-27 00:43] LABS: Ammonia 94 umol/L (13-55)
[2025-05-27 01:19] LABS: Glucose, Whole Blood 155 mg/dL (60-115)
--- NOTE | 2025-05-27 02:08 | ECG_ITS ---
Test Reason : QTc check Blood Pressure : */* mmHG Vent. Rate : 63 BPM Atrial Rate : 63 BPM P-R Int : 138 ms QRS Dur : 90 ms QT Int : 456 ms P-R-T Axes : 41 -22 10 degrees QTcB Int : 466 ms Normal sinus rhythm Nonspecific T wave abnormality Abnormal ECG When compared with ECG of 26-May-2025 20:03, T wave inversion now evident in Anterior leads QT has shortened Referred By: Makayla Lamas Electronically Signed By: MCKINLEY SANTIZO MD
[2025-05-27 03:47] LABS: Ammonia 105 umol/L (13-55)
[2025-05-27 04:00] VITALS: BP 115/41; PULSE 61; RESP 16; O2SAT 97
[2025-05-27 04:48] LABS: MANUAL DIFF FLAG NO
[2025-05-27 04:53] LABS: Hematocrit 40.1 % (37.0-47.0); Hemoglobin 13.5 g/dl (12.0-16.0); Imm Gran Abs Auto 0.01 X10*3/uL (0.00-0.03); Imm Gran Pct Auto 0.2 % (0.0-0.4); Lymphocytes Absolute Auto 2.4 X10*3/uL (1.2-4.9); Mean Corpuscular HGB Conc 33.7 g/dl (31.0-35.0); Mean Corpuscular Hemoglobin 32.8 pg (27.0-33.0); Mean Corpuscular Volume 97.3 fL (80.0-98.0); NRBC Abs Auto 0.000 X10*3/uL (0.0-0.012); NRBC Pct Auto 0.0 /100WBC (0.0-0.2); Platelet Count 165 X10*3/uL (160-400); Red Blood Count 4.12 X10*6/uL (4.20-5.50); White Blood Count 6.1 X10*3/uL (4.8-10.8)
[2025-05-27 05:09] LABS: Anion Gap 11 (12-20); Blood Urea Nitrogen 14 mg/dL (9-16); Calcium 8.1 mg/dL (8.4-10.2); Carbon Dioxide 25 mmol/L (22-29); Chloride 113 mmol/L (96-108); Creatinine Clr Calc Pharmacy 135.4; Estimated Glomerular Filt Rate > 60; Magnesium 2.0 mg/dL (1.6-2.6); Potassium 3.6 mmol/L (3.3-5.1); Sodium 145 mmol/L (135-145)
[2025-05-27 06:20] LABS: Glucose, Whole Blood 149 mg/dL (60-115)
--- NOTE | 2025-05-27 07:00 | CA_ITS ---
Transthoracic Echocardiogram Patient (Last, First, Middle): Alice Andres, Gender: F Date of : 1960 Age: 64 Procedure Date: 05/27/2025 Procedure Type: Transthoracic Echocardiogram Location: ER Height: 170.18 cm Weight: 83.92 kg BSA: 1.96 m2 Heart Rate: bpm BP: 128 / 48 mmHg Photo Lab Manager: TO/RC Referring MD: Waleska Christensen PA-C Sole Inker: Cristiano Olmos MD Symptoms: ?CVA Study Quality: Fair ECG Rhythm: Sinus Conclusions: - 1. Intra-atrial shunting evident suggestive of PFO. 2. Normal LV ejection fraction of 60 65% 3. Calcific aortic and mitral valve changes with normal cardiac valvular Dopplers 4. Normal measured RV systolic pressure 5. No gross pericardial effusion Findings Procedure Information The study quality is limited by the patients inability to tolerate the test. The patient declines contrast. Left Ventricle Normal left ventricular size, thickness, and systolic function. The visually estimated ejection fraction is between 60-65%. Regional wall motion abnormalities can not be excluded due to suboptimal endocardial definition. Spectral Doppler is indicative of a normal filling pattern. Right Ventricle Normal right ventricular cavity size and systolic function. Atria The left atrium is likely dilated. Contrast study for right to left shunting is moderately positive. Contrast study for right to left shunting is severely positive with Valsalva maneuver. Patent foramen ovale detected using by contrast. There is shunt reversal with the release phase of the Valsalva maneuver. Bubble study positive for interatrial shunt. The right atrium was not well visualized. Aortic Valve There is mild calcification of the aortic valve. There is no aortic valve stenosis. There is no aortic valve regurgitation. Mitral Valve There is mild anterior mitral leaflet thickening. There is mild mitral annular calcification. There is trace mitral valve regurgitation. There is no mitral valve stenosis. Pulmonic Valve The pulmonic valve was not well visualized. Tricuspid Valve Normal tricuspid valve structure. There is trace tricuspid valve regurgitation. The right ventricular systolic pressure is 21 mmHg. Normal right atrial pressure. There is no evidence of pulmonary hypertension. Great Vessels All visible segments of the aorta are normal in size. The pulmonary artery was not well visualized. Small plaque is seen in the sino tubular ridge. Venous The inferior vena cava is normal in size and collapses greater than 50% with inspiration. Pericardium/Pleural There is no evidence of pericardial effusion. Prior Study Comparison No prior study available for comparison. Recommendations, Care & Conclusions Consider a MARILY if clinically appropriate. Measurements 2D Linear Measurements IVSd: 0.83 0.6-0.9/0.6-1.0 cm LVIDd: 4.67 3.9-5.3/4.2-5.9 cm LVIDd Index: 2.38 2.4-3.2/2.2-3.1 cm/m2 LVIDs: 3.06 2.0-3.6 cm LVPWd: 0.87 0.7-1.1 cm LA Diam: 4.10 2.7-3.8/3.0-4.0 cm LAIDs Index: 2.09 1.5-2.3 cm/m2 LV Mass: 162.39 67-162/88-224 g LV Mass Index: 82.85 43-95/49-115 g/m2 LVOT Diam: 2.00 3.0+(-)1.3 cm Mitral Valve MV Pk E: 0.97 MV PK A: 0.68 MV Decel Time: 245.00 E/A: 1.40 E'Lateral: 11.40 E'Medial: 5.11 E/E' Med: 19.00 E/E' Lat: 8.50 PHT: 72.00 MVA PHT: 3.06 Decel Elbert: 3.97 Aortic Valve AoV Pk Rudy: 1.51 AoV Mn Rudy: 0.92 AoV VTI: 0.34 AoV Pk Grad: 9.00 Aov Mn Grad: 4.00 CALI Cont.VTI: 2.38 LVOT LVOT Pk Rudy: 1.01 LVOT Mn Rudy: 0.69 LVOT VTI: 0.25 LVOT Pk Grad: 4.00 LVOT Mn Grad: 2.00 LVOT Diam: 2.00 LVOT Area: 3.14 Diastolic Function MV Pk E: 0.97 MV Pk A: 0.68 E/A: 1.40 E'Medial: 5.11 E/E' Med: 19.00 E' Laterial: 11.40 E/E' Lat: 8.50 Right Ventricle TAPSE (mm): 22.80 TVS' Rudy: 10.80 Tricuspid Valve TR Pk Rudy: 2.14 TR Pk Grad: 18.00 RA Press: 3.00 RVSP: 21.00 Great Vessels Aorta Sinus of Valsalva: 2.90 2.0-3.5 cm Ao Asc: 3.40 2.1-3.4 cm Pulmonary Valve PV Pk Rudy: 1.13 Peak PV Grad: 5.00 Updated in Other Vendor System with Status of Final Cristiano Olmos MD electronically signed on 05/27/2025 1:06:56 PM with status of Final
--- NOTE | 2025-05-27 07:45 | MHC.EDTECH ---
patient was incontient of stool and urine cleaned and changed patient nurse aware
[2025-05-27 08:38] LABS: Cholesterol 179 mg/dL (<200); HDL Cholesterol 32 mg/dL (>40); Triglycerides 70 mg/dL (<150)
--- NOTE | 2025-05-27 08:45 | PHA.MEDREC ---
Addendum entered by Mohamud Mejia RPh 05/27/25 10:18: MED REC REVIEWED BY [facility] ED Original Note: Pharmacy Consult ? Medication Reconciliation Pharmacy has completed the medication reconciliation. Utilized med list from [facility] and [facility].
--- NOTE | 2025-05-27 09:39 | PC.NURSE ---
Attempted to medicate Pt with AM meds. Echo staff and phlebotomy at bedside as well. Pt appears overwhelmed and requests medications be given after her echo. Will attempt to medicate Pt after echo procedure.
[2025-05-27 09:41] VITALS: BP 128/48; PULSE 62; RESP 10; TEMP 36.4; O2SAT 98
[2025-05-27 10:12] LABS: Troponin-I High Sensitivity 48.5 ng/L (<3.5-17.0)
[2025-05-27] MEDS: 0.9 % Sodium Chloride Flush 3 ML SYRINGE IVFLUSH ×3 (10:51→23:10)
--- NOTE | 2025-05-27 11:06 | PC.NURSE ---
Pt is refusing her MRI this morning. Encouragement and education provided on the importance of scheduled imaging but she is adamant. Attending made aware via [employer].
--- NOTE | 2025-05-27 11:41 | MHC.CM.PN ---
Pt. lives at [facility], per H&P she is confused at baseline. CM spoke with her sister / HCP, Silvana. PCP is: Candie Richardson MD. DCP: return to SNF via BLS. CM to follow for DC needs.
--- NOTE | 2025-05-27 12:03 | P.CNNE_ITS ---
History of Present Illness Data of Consult Service Date: 05/27/25 Primary Care Provider: Candie Richardson MD [facility] Reason for consult: Altered mental status This is a 64-year-old female with a past medical history of seizure disorder, cirrhosis/hepatic encephalopathy, diabetes, HLD, HTN and confusion at baseline, who presented to the ED from [facility] due to worsening altered mental status over the past 24 hours. At baseline, the patient is alert and oriented x3 and uses a walker. Patient's nurse noted today that she was declining in mental status and had become lethargic. She has had muffled/slurred speech as well as a right-sided facial droop. Last known well time is unknown. The pt was unable to provide much history but was very slow to respond. she does not know when her last BM was. no abd pain, chest pain, SOB, nausea, vomiting or UTI sx. Her CT of the brain shows diffuse atrophy and white matter microvascular changes. CTA of the head and neck is unremarkable. Urinalysis is consistent with a mild UTI. Of note, the pt had a previous admission with very similar presentation, was treated with ceftriaxone for suspected UTI, culture was negative, but pt had improvement with abx. [facility] Past Medical History Medical History Sacral ulcer Mood disorder Cirrhosis Hepatic encephalopathy Seizures Diabetes Social History Social History Housing: Assisted Living Facility Patient Tobacco Use Status: Former Tobacco user Advance Directives: Yes Advance Directives on File: Yes Advance Directives Date on File: 03/30/25 service: No Meds Allergies Allergy/AdvReac Type Severity Reaction Status Date / Time Penicillins Allergy Unknown Verified 05/26/25 19:38 Sulfa (Sulfonamide Allergy Unknown Verified 05/26/25 19:38 Antibiotics) sulfamethoxazole (From Allergy Unknown Verified 05/26/25 19:38 Bactrim) trimethoprim (From Bactrim) Allergy Unknown Verified 05/26/25 19:38 Active Medications: Current Medications Acetaminophen (Acetaminophen 325 Mg Tablet) 650 mg PO Q6H PRN PRN Reason: Pain, Mild 1-3,fever,headache Calcium Carbonate (Calcium Carbonate 750 Mg Tab.Chew) 750 mg PO Q4H PRN PRN Reason: Heartburn Ceftriaxone Sodium (Ceftriaxone Sodium 1 Gm Vial) 1 gm IVPUSH Q24H [facility] Last Admin: 05/27/25 00:53 Dose: 1 gm Dextrose (Dextrose 50 % 25 Gm/50 Ml Syringe) 25 gm IVPUSH Q15M PRN; Protocol PRN Reason: per Hypoglycemia Standing Ord. Glucose (Glucose Gel 15 Gm Gel..Gram.) 15 gm PO Q15M PRN; Protocol PRN Reason: per Hypoglycemia Standing Ord. Heparin Sodium (Porcine) (Heparin Sodium,Porcine 5,000 Unit/Ml Vial) 5,000 unit SUBCUT Q8H [facility] Last Admin: 05/27/25 11:00 Dose: 5,000 unit Insulin Glargine (Insulin Glargine,Hum.Rec.Anlog 100 Unit/Ml 10 Ml Vial) 18 unit SUBCUT BEDTIME [facility] Insulin Human Lispro (Insulin Lispro 100 Unit/Ml 3 Ml Vial) 0 unit SUBCUT Q6H [facility]; Protocol Last Admin: 05/27/25 06:20 Dose: Not Given Lactulose (Lactulose 20 Gm/30 Ml Solution) 30 gm PO BID [facility] Last Admin: 05/27/25 10:51 Dose: 30 gm Levetiracetam (Levetiracetam 250 Mg Tablet) 750 mg PO BID [facility] Last Admin: 05/27/25 10:51 Dose: 750 mg Magnesium Hydroxide (Milk Of Magnesia 30 Ml Oral.Susp) 30 ml PO DAILY PRN PRN Reason: Constipation Magnesium Hydroxide (Milk Of Magnesia 30 Ml Oral.Susp) 30 ml PO DAILY PRN PRN Reason: Constipation Melatonin (Melatonin 3 Mg Tablet) 6 mg PO BEDTIME PRN PRN Reason: Insomnia Sodium Chloride (0.9 % Sodium Chloride Flush 3 Ml Syringe) 3 ml IVFLUSH QSHIFT [facility] Last Admin: 05/27/25 10:51 Dose: 3 ml Home Medications ?Medication ?Instructions ?Recorded ?Confirmed ?Last Taken ?Type acetaminophen 325 mg tablet 650 mg PO Q6H PRN Fever Or Pain 03/25/25 05/27/25 Unknown History atorvastatin 20 mg tablet 20 mg PO BEDTIME 03/25/2505/25/25 History bisacodyl 10 mg rectal suppository 10 mg ID DAILY PRN Constipation 03/25/25 05/27/25 Unknown History ergocalciferol (vitamin D2) 1,250 1,250 mcg [place] 0802/1105/27/25 05/25/25 History mcg (50,000 unit) capsule folic acid 1 mg tablet 1 mg PO DAILY 03/25/2505/2705/26/25 History insulin glargine 100 unit/mL (3 25 unit subcut BEDTIME 03/25/25 05/27/25 05/25/25 History mL) subcutaneous pen (Lantus Solostar U-100 Insulin) insulin lispro 100 unit/mL See Protocol subcut TIDAC 0 03/25/25 05/27/25 05/26/25 History subcutaneous pen (Humalog KwikPen (U-100) Insulin) lactulose 10 gram/15 mL oral 30 ml PO Q12H PRN if less then 2 03/25/25 05/27/25 Unknown History solution bm a day melatonin 3 mg tablet 3 mg PO BEDTIME PRN Sleep 05/27/25 Unknown History multivitamin with minerals 1 tab PO DAILY 03/25/2504/1305/26/25 History dextrose 40 % oral gel (Glucose 10 g PO Q15M PRN Hypog lycemia 05/27/25 05/27/25 Unknown History Gel) glucagon 1 mg solution for 1 mg subcut ONCE PRN Hypogl ycemia 05/27/25 05/27/25 Unknown History injection levetiracetam 750 mg tablet 750 mg PO BID 05/27/2504/1305/26/25 History (Keppra) loperamide 2 mg tablet (Imodium 2 mg PO Q6H PRN Loose Stool 05/27/25 05/27/25 Unknown History A-D) magnesium hydroxide 400 mg/5 mL 30 ml PO DAILY PRN Con stipation 05/27/25 05/27/25 Unknown History oral suspension (Milk of Magnesia) magnesium oxide 400 mg PO BID 05/27/2505/2705/26/25 History ondansetron 4 mg disintegrating 4 mg PO Q8H PRN Nausea And Vomiting 05/27/25 05/27/25 Unknown History tablet potassium chloride 20 mEq/15 mL 20 meq PO BID 05/27/25 05/27/25 05/26/25 History oral liquid rifaximin 550 mg tablet (Xifaxan) 550 mg PO BID 05/27/25 05/26/25 History sertraline 25 mg tablet 25 mg PO DAILY 05/27/2504/1305/26/25 History sodium phosphates 19 gram-7 118 ml ID DAILY PRN Radhai tobi 05/27/25 05/27/25 Unknown History gram/118 mL enema (Fleet Enema) spironolactone 50 mg tablet 50 mg PO DAILY 05/27/2505/26/25 History Physical Exam 2 Vital Signs: Vital Signs: Last Vital Signs Temp 97.5 F 05/27/25 09:41 Pulse 62 05/27/25 09:41 Resp 10 L 05/27/25 09:41 BP 128/48 L 05/27/25 09:41 Pulse Ox 98 05/27/25 09:41 O2 Del Method Room Air 05/27/25 09:41 O2 Flow Rate 2 05/27/25 04:00 BMI result Body Mass Index 29.0 Neuro: Other: She is arousable but lethargic and occasionally will follow one-step commands. Neck is supple. Neurological examination is nonfocal. Results Labs 05/27/25 03:37 05/27/25 03:37 Labs: Short CBC 05/26/25 05/27/25 Range/Units 19:52 03:37 WBC 5.7 6.1 (4.8-10.8) X10*3/uL Hgb 13.3 13.5 (12.0-16.0) g/dl Hct 38.7 40.1 (37.0-47.0) % Plt Count 159 L 165 (160-400) X10*3/uL BMP 05/26/25 05/27/25 19:52 03:37 Sodium 144 145 Potassium 3.6 3.6 Chloride 110 H 113 H Carbon Dioxide 26 25 BUN 16 14 Creatinine 0.60 0.48 L Calcium 8.2 L 8.1 L Liver Function 05/26/25 Range/Units 19:52 Total Bilirubin 1.4 H (0.0-1.0) mg/dL Direct Bilirubin 0.5 (0.0-0.5) mg/dL AST 36 H (5-31) U/L ALT 12 (0-31) U/L Alkaline Phosphatase 115 (39-117) U/L Albumin 2.5 L (3.5-5.0) g/dL Urine 05/26/25 Range/Units 20:21 Urine Color Dark Yellow Urine Appearance Clear Urine pH 5.0 (5.0-9.0) Ur Specific [place] >= 1.030 H (1.005-1.025) Urine Protein Negative (Neg-Trace) mg/dL Urine Glucose (UA) Negative (Negative) mg/dL Assessment and Plan (1) Altered mental status: Qualifiers: Altered mental status type: unspecified Qualified Code(s): R41.82 - Altered mental status, unspecified Status: Acute Plan Altered mental status with encephalopathy probably related to UTI. Check other metabolic abnormalities including serum ammonia. CT and CTA are unremarkable. Procedures Date of Service Date of Service: 05/27/25
[2025-05-27 12:37] LABS: Glucose, Whole Blood 211 mg/dL (60-115)
--- NOTE | 2025-05-27 13:00 | MHC.EDTECH ---
patient was incontinent of urine and stool this tech clean and changed patient nurse aware.
--- NOTE | 2025-05-27 13:40 | HO.PM.IMPN ---
Subjective Subjective Date of Service: 05/27/25 Interval History: Pt alert and awake to self, place, and time. Pt interactive and answering appropriately Has been refusing MRI has reports previous MRI gave her a headache: I can't go through that again Denies headache No acute vision changes Denies hemiparesis Review of Systems Review of Systems: Yes all other systems are reviewed and are negative Physical Exam Exam: Exam: General: AOx3, no acute distress Resp: CTA bilaterally CVS: S1, S2, RRR GI: +BS, NT, no distention Skin: Warm, dry Neuro: Cranial nerves II-XII grossly intact bilaterally. Motor grossly intact bilaterally. Possible right-sided facial droop, though smile symmetric. Exam essentially nonfocal. Negative pronator drift. Intact sensation to light touch of face and upper and lower extremities bilaterally. Global and symmetric weakness noted. Extremities: No edema Psych: Appropriate affect Vital Signs: Vital Signs: Last Vital Signs Temp 97.5 F 05/27/25 09:41 Pulse 62 05/27/25 09:41 Resp 10 L 05/27/25 09:41 BP 128/48 L 05/27/25 09:41 Pulse Ox 98 05/27/25 09:41 O2 Del Method Room Air 05/27/25 09:41 O2 Flow Rate 2 05/27/25 04:00 BMI result Body Mass Index 29.0 Objective Data Active Medications Acetaminophen (Acetaminophen 325 Mg Tablet) 650 mg PO Q6H PRN PRN Reason: Pain, Mild 1-3,fever,headache Calcium Carbonate (Calcium Carbonate 750 Mg Tab.Chew) 750 mg PO Q4H PRN PRN Reason: Heartburn Ceftriaxone Sodium (Ceftriaxone Sodium 1 Gm Vial) 1 gm IVPUSH Q24H [facility] Last Admin: 05/27/25 00:53 Dose: 1 gm Documented By: JERAMY Dextrose (Dextrose 50 % 25 Gm/50 Ml Syringe) 25 gm IVPUSH Q15M PRN; Protocol PRN Reason: per Hypoglycemia Standing Ord. Glucose (Glucose Gel 15 Gm Gel..Gram.) 15 gm PO Q15M PRN; Protocol PRN Reason: per Hypoglycemia Standing Ord. Heparin Sodium (Porcine) (Heparin Sodium,Porcine 5,000 Unit/Ml Vial) 5,000 unit SUBCUT Q8H [facility] Last Admin: 05/27/25 11:00 Dose: 5,000 unit Documented By: SARKIS Insulin Glargine (Insulin Glargine,Hum.Rec.Anlog 100 Unit/Ml 10 Ml Vial) 18 unit SUBCUT BEDTIME [facility] Insulin Human Lispro (Insulin Lispro 100 Unit/Ml 3 Ml Vial) 0 unit SUBCUT Q6H [facility]; Protocol Last Admin: 05/27/25 13:10 Dose: 4 unit Documented By: SARKIS Lactulose (Lactulose 20 Gm/30 Ml Solution) 30 gm PO BID [facility] Last Admin: 05/27/25 10:51 Dose: 30 gm Documented By: SARKIS Levetiracetam (Levetiracetam 250 Mg Tablet) 750 mg PO BID [facility] Last Admin: 05/27/25 10:51 Dose: 750 mg Documented By: SARKIS Magnesium Hydroxide (Milk Of Magnesia 30 Ml Oral.Susp) 30 ml PO DAILY PRN PRN Reason: Constipation Magnesium Hydroxide (Milk Of Magnesia 30 Ml Oral.Susp) 30 ml PO DAILY PRN PRN Reason: Constipation Melatonin (Melatonin 3 Mg Tablet) 6 mg PO BEDTIME PRN PRN Reason: Insomnia Sodium Chloride (0.9 % Sodium Chloride Flush 3 Ml Syringe) 3 ml IVFLUSH QSHIFT [facility] Last Admin: 05/27/25 10:51 Dose: 3 ml Documented By: SARKIS Labs 05/27/25 03:37 05/27/25 03:37 Labs: Laboratory Results - last 24 hr 05/26/25 05/26/25 05/26/25 19:52 19:58 20:21 MCV 95.6 MCH 32.8 MCHC 34.4 RDW 15.1 Plt Count 159 L MPV 10.3 Immature Gran % (Auto) 0.4 Neut % (Auto) 49.3 Lymph % (Auto) 31.8 Ellis % (Auto) 14.8 H Eos % (Auto) 2.6 Baso % (Auto) 1.1 Lymph # (Auto) 1.8 [place] # (Auto) 0.8 Eos # (Auto) 0.2 Baso # (Auto) 0.1 Abs Immat Gran (auto) 0.02 Absolute Neuts (auto) 2.8 Absolute Nucleated RBC 0.000 Nucleated RBC % (auto) 0.0 PT 15.6 H INR 1.4 H Anion Gap 12 Estim Creat Clear Calc 108.3 Estimated GFR > 60 POC Glucose Random Glucose 163 H Lactic Acid 2.1 H* Lactic Acid F/U @ 2Hr Calcium 8.2 L Magnesium 1.9 Total Bilirubin 1.4 H Direct Bilirubin 0.5 AST 36 H ALT 12 Alkaline Phosphatase 115 Ammonia Troponin I High Sens 51.6 H* Total Protein 5.6 L Albumin 2.5 L Triglycerides Cholesterol LDL Cholesterol, Calc HDL Cholesterol TSH 0.49 Urine Color Dark Yellow Urine Appearance Clear Urine pH 5.0 Ur Specific Martin >= 1.030 H Urine Protein Negative Urine Glucose (UA) Negative Urine Ketones Negative Urine Blood Negative Urine Nitrite Negative Ur Leukocyte Esterase Small (1+) H Urine RBC 0-2 Urine WBC 11-20 Ur Squamous Epith Cells >20 Urine Bacteria None Seen Hyaline Casts 3-5 Urine Opiates Screen Not Detected Ur Buprenorphine Scrn Not Detected Ur Oxycodone Screen Not Detected Urine Methadone Screen Not Detected Urine Fentanyl Screen Not Detected Ur Barbiturates Screen Not Detected Ur Phencyclidine Scrn Not Detected Ur Amphetamines Screen Not Detected U Benzodiazepines Scrn Not Detected Urine Cocaine Screen Not Detected U Marijuana (THC) Screen Not Detected Ethyl Alcohol < 10 Influenza Type A (PCR) NEGATIVE Influenza Type B (PCR) NEGATIVE RSV RNA Qual (PCR) NEGATIVE SARS-CoV-2 RNA (RT-PCR) NEGATIVE 05/26/25 05/27/25 05/27/25 22:17 00:26 01:13 MCV MCH MCHC RDW Plt Count MPV Immature Gran % (Auto) Neut % (Auto) Lymph % (Auto) [place] % (Auto) Eos % (Auto) Baso % (Auto) Lymph # (Auto) [place] # (Auto) Eos # (Auto) Baso # (Auto) Abs Immat Gran (auto) Absolute Neuts (auto) Absolute Nucleated RBC Nucleated RBC % (auto) PT INR Anion Gap Estim Creat Clear Calc Estimated GFR POC Glucose 155 H Random Glucose Lactic Acid Lactic Acid F/U @ 2Hr 1.6 Calcium Magnesium Total Bilirubin Direct Bilirubin AST ALT Alkaline Phosphatase Ammonia 94 H Troponin I High Sens Total Protein Albumin Triglycerides Cholesterol LDL Cholesterol, Calc HDL Cholesterol TSH Urine Color Urine Appearance Urine pH Ur Specific Martin Urine Protein Urine Glucose (UA) Urine Ketones Urine Blood Urine Nitrite Ur Leukocyte Esterase Urine RBC Urine WBC Ur Squamous Epith Cells Urine Bacteria Hyaline Casts Urine Opiates Screen Ur Buprenorphine Scrn Ur Oxycodone Screen Urine Methadone Screen Urine Fentanyl Screen Ur Barbiturates Screen Ur Phencyclidine Scrn Ur Amphetamines Screen U Benzodiazepines Scrn Urine Cocaine Screen U Marijuana (THC) Screen Ethyl Alcohol Influenza Type A (PCR) Influenza Type B (PCR) RSV RNA Qual (PCR) SARS-CoV-2 RNA (RT-PCR) 05/27/25 05/27/25 05/27/25 03:37 06:16 09:41 MCV 97.3 MCH 32.8 MCHC 33.7 RDW 14.9 Plt Count 165 MPV 10.9 Immature Gran % (Auto) 0.2 Neut % (Auto) 42.0 L Lymph % (Auto) 39.6 Ellis % (Auto) 13.8 H Eos % (Auto) 3.4 Baso % (Auto) 1.0 Lymph # (Auto) 2.4 Ellis # (Auto) 0.8 Eos # (Auto) 0.2 Baso # (Auto) 0.1 Abs Immat Gran (auto) 0.01 Absolute Neuts (auto) 2.6 Absolute Nucleated RBC 0.000 Nucleated RBC % (auto) 0.0 PT INR Anion Gap 11 L Estim Creat Clear Calc 135.4 Estimated GFR > 60 POC Glucose 149 H Random Glucose 154 H Lactic Acid Lactic Acid F/U @ 2Hr Calcium 8.1 L Magnesium 2.0 Total Bilirubin Direct Bilirubin AST ALT Alkaline Phosphatase Ammonia 105 H Troponin I High Sens 48.5 H Total Protein Albumin Triglycerides 70 Cholesterol 179 LDL Cholesterol, Calc 133 H HDL Cholesterol 32 L TSH Urine Color Urine Appearance Urine pH Ur Specific Martin Urine Protein Urine Glucose (UA) Urine Ketones Urine Blood Urine Nitrite Ur Leukocyte Esterase Urine RBC Urine WBC Ur Squamous Epith Cells Urine Bacteria Hyaline Casts Urine Opiates Screen Ur Buprenorphine Scrn Ur Oxycodone Screen Urine Methadone Screen Urine Fentanyl Screen Ur Barbiturates Screen Ur Phencyclidine Scrn Ur Amphetamines Screen U Benzodiazepines Scrn Urine Cocaine Screen U Marijuana (THC) Screen Ethyl Alcohol Influenza Type A (PCR) Influenza Type B (PCR) RSV RNA Qual (PCR) SARS-CoV-2 RNA (RT-PCR) 05/27/25 12:32 MCV MCH MCHC RDW Plt Count MPV Immature Gran % (Auto) Neut % (Auto) Lymph % (Auto) Ellis % (Auto) Eos % (Auto) Baso % (Auto) Lymph # (Auto) Ellis # (Auto) Eos # (Auto) Baso # (Auto) Abs Immat Gran (auto) Absolute Neuts (auto) Absolute Nucleated RBC Nucleated RBC % (auto) PT INR Anion Gap Estim Creat Clear Calc Estimated GFR POC Glucose 211 H Random Glucose Lactic Acid Lactic Acid F/U @ 2Hr Calcium Magnesium Total Bilirubin Direct Bilirubin AST ALT Alkaline Phosphatase Ammonia Troponin I High Sens Total Protein Albumin Triglycerides Cholesterol LDL Cholesterol, Calc HDL Cholesterol TSH Urine Color Urine Appearance Urine pH Ur Specific Martin Urine Protein Urine Glucose (UA) Urine Ketones Urine Blood Urine Nitrite Ur Leukocyte Esterase Urine RBC Urine WBC Ur Squamous Epith Cells Urine Bacteria Hyaline Casts Urine Opiates Screen Ur Buprenorphine Scrn Ur Oxycodone Screen Urine Methadone Screen Urine Fentanyl Screen Ur Barbiturates Screen Ur Phencyclidine Scrn Ur Amphetamines Screen U Benzodiazepines Scrn Urine Cocaine Screen U Marijuana (THC) Screen Ethyl Alcohol Influenza Type A (PCR) Influenza Type B (PCR) RSV RNA Qual (PCR) SARS-CoV-2 RNA (RT-PCR) Assessment and Plan (1) Acute hepatic encephalopathy: Status: Acute (2) Hyperammonemia: Status: Acute Plan Patient is a 64-year-old female with a past medical history significant for seizure disorder, cirrhosis/hepatic encephalopathy, diabetes, HLD, HTN and confusion at baseline, who presented to the ED from [facility] due to worsening altered mental status over the past 24 hours. acute hepatic encephalopathy with hyperammonemia - in the setting of liver cirrhosis - initial ammonia 94 with repeat 105 - currently appears to be mentating better in his alert and oriented x3 - treat with lactulose 30 g b.i.d. - Trend ammonia Question of acute UTI - UA not convincingly positive, likely contaminated with >20 squamous epithelial cells - continue empiric ceftriaxone pending urine cultures slurred speech, likely due to hepatic encephalopathy - CVA less likely, though workup due to reported facial droop - CT and CTA unremarkable - pt has been refusing MRI brain - echo showing intra-atrial shunting suggestive of PFO; LVEF 60 65% - lipid panel with elevated LDL and low HDL - neurology consulted, believe that AMS secondary to UTI or ammonia; no indication to continue stroke workup with MRI seizure disorder - keppra cirrhosis - lactulose, spironolactone DM - sliding scale - redued dose lantus 18U QHS HLD - statin HTN - spironolactone full code VTE prophy: heparin Pt requires continued hospitalization for continued monitoring and treatment for acute metabolic encephalopathy likely secondary to hyperammonemia. Quality Stroke Does the patient have a stroke diagnosis?: No VTE Prior VTE?: No VTE Risk Level:: Medical - moderate - high VTE Device Contraindication: Treatment Not Indicated VTE Drug Contraindication: N/A - Med Ordered
--- NOTE | 2025-05-27 13:50 | MHC.SLORD ---
Speech Language Pathology Order Status: Cognitive evaluation to be completed when pt able to participate. Pt declining further assessment today.
--- NOTE | 2025-05-27 17:00 | MHC.EDTECH ---
patient was incontinent of urine and stool this tech clean and changed patient nurse aware.
[2025-05-27 17:23] VITALS: BP 143/63; PULSE 69; RESP 17; TEMP 36.6; O2SAT 96
--- NOTE | 2025-05-27 18:24 | HO.NURTONUR ---
64 yr old female admitted for acute hepatic encepalopathy and acute UTI. Pt comes from [facility] for concerns of increased AMS and lethargy. Per [facility] staff, Pt has confusion at base line is typically A&Ox3 and alert. PMH: DM, Seizures, Hepatic Encephalopathy. Ammonia level elevated: 105--Pt on lactulose. Pt arrives with severe psoriasis and tunneling sacrum wound Seizure precautions in place; Pt is on Keppra [place] attempted but decided against d/t frequent BMs and psoriasis; Bedpan as needed for toileting. Pt has been A&Ox3 for the majority of the day. Intermittent times this AM with forgetfulness. Pt seen by Speech Therapy today. Bedside Echo completed. Pt refused MRI--attending aware. 20g IV access to LAC and RFA.
--- NOTE | 2025-05-27 18:45 | MHC.EDTECH ---
patient was incontinent of stool and urine this tech cleaned and changed patient nurse aware
[2025-05-27 19:40] LABS: Glucose, Whole Blood 270 mg/dL (60-115)
[2025-05-27] MEDS: Insulin Glargine,Hum.rec.anlog 100 UNIT/ML 10 ML VIAL 18 UNIT SUBCUT (19:41)
[2025-05-27 20:11] VITALS: BP 128/46; PULSE 73; RESP 16; TEMP 36.6; O2SAT 93
[2025-05-27] MEDS: Potassium Chloride Packet 20 MEQ PACKET PO (20:46)
[2025-05-28 00:04] VITALS: BP 130/43; PULSE 76; RESP 14; O2SAT 92
[2025-05-28 05:16] LABS: MANUAL DIFF FLAG NO
[2025-05-28 05:19] LABS: Hematocrit 39.0 % (37.0-47.0); Hemoglobin 12.9 g/dl (12.0-16.0); Imm Gran Abs Auto 0.02 X10*3/uL (0.00-0.03); Imm Gran Pct Auto 0.3 % (0.0-0.4); Lymphocytes Absolute Auto 2.0 X10*3/uL (1.2-4.9); Mean Corpuscular HGB Conc 33.1 g/dl (31.0-35.0); Mean Corpuscular Hemoglobin 32.3 pg (27.0-33.0); Mean Corpuscular Volume 97.5 fL (80.0-98.0); NRBC Abs Auto 0.000 X10*3/uL (0.0-0.012); NRBC Pct Auto 0.0 /100WBC (0.0-0.2); Platelet Count 170 X10*3/uL (160-400); Red Blood Count 4.00 X10*6/uL (4.20-5.50); White Blood Count 6.9 X10*3/uL (4.8-10.8)
[2025-05-28 05:43] LABS: Ammonia 65 umol/L (13-55)
[2025-05-28 05:44] VITALS: BP 134/55; PULSE 82; RESP 19; TEMP 37; O2SAT 94
[2025-05-28 07:07] LABS: Anion Gap 11 (12-20); Blood Urea Nitrogen 12 mg/dL (9-16); Calcium 8.8 mg/dL (8.4-10.2); Carbon Dioxide 24 mmol/L (22-29); Chloride 110 mmol/L (96-108); Creatinine Clr Calc Pharmacy 130.0; Estimated Glomerular Filt Rate > 60; Magnesium 1.6 mg/dL (1.6-2.6); Potassium 3.5 mmol/L (3.3-5.1); Sodium 141 mmol/L (135-145)
[2025-05-28 07:48] LABS: Glucose, Whole Blood 213 mg/dL (60-115)
[2025-05-28 08:00] VITALS: BP 120/58; PULSE 80; RESP 13; TEMP 37.2; O2SAT 96
[2025-05-28] MEDS: Potassium Chloride Packet 20 MEQ PACKET PO (08:02)
[2025-05-28] MEDS: 0.9 % Sodium Chloride Flush 3 ML SYRINGE IVFLUSH (08:03)
--- NOTE | 2025-05-28 09:35 | PC.NURSE ---
Pt to be discharged back [facility], nurse to nurse report given to Sirena ULLOA. Transportation is set up. VSS. NAD. Pt is agreeable to plan of care.
--- NOTE | 2025-05-28 09:44 | P.DS_ITS ---
DS: Providers Provider Date of Service: 05/28/25 Date of admission: 05/27/25 00:05 Date of discharge: 05/28/25 Primary care physician: Candie Richardson MD Consults: 05/27/25 00:06 Consult to Neurology Routine Consulting Provider: [facility] Reason for consultation: AMS, slurred speech DS: Diagnosis Discharge Diagnosis (1) Acute hepatic encephalopathy: Status: Acute (2) Hyperammonemia: Status: Acute DS: Summary Hospital Course Hospital Course: From admission HPI: Date of Service: 05/27/25 Attending physician on admission: Pedro Boggs Chief Complaint: AMS Patient is a 64-year-old female with a past medical history significant for seizure disorder, cirrhosis/hepatic encephalopathy, diabetes, HLD, HTN and confusion at baseline, who presented to the ED from [facility] due to worsening altered mental status over the past 24 hours. At baseline the patient is alert and oriented x3 and uses walker. Patient's nurse noted today from 07:00 to 15:00 that she was declining in mental status and lethargic. She has had muffled/slurred speech as well as a right-sided facial droop. Last known w ell time is unknown. The pt was unable to provide much history but was very slow to respond. she does not know when her last BM was. no abd pain, chest pain, SOB, nausea, vomiting or UTI sx. Of note, the pt had a previous admission with very similar presentation, was treated with ceftriaxone for suspected UTI, culture was negative, but pt had improvement with abx. Hospital course Pt admitted to the hospital for acute hepatic encephalopathy secondary to hyperammonemia. Patient's initial ammonia was noted to be 94 with repeat further elevated at 105. pt was treated with lactulose to good effect with improvement to mentation and drop in ammonia to 65. Pt with liver cirrhosis, though med rec showed patient's lactulose was p.r.n. rather than scheduled, which likely led to her encephalopathy. pt had a similar presentation 2 months prior where she was also noted to have elevated ammonia and treated with lactulose. Was also treated for possible UTI, though culture was negative. Pt was also treated empirically for a UTI while in the hospital, though UA was not convincingly positive and looked like it was contaminated. Pt was also initially treated for possible stroke as there was some concern for right-sided facial droop, though pt responded appropriately to lactulose. Was seen by Neurology who thought encephalopathy was secondary to either ammonia or UTI, especially given that CT and CTA of head were unremarkable. Pt was scheduled to have an MRI but she declined as she reports negative effects from previous imaging. Pt did undergo an echo with an incidental finding of a PFO. Pt should follow up with her PCP, though currently no indication for any additional treatment or workup. Pt will be discharged back to facility on scheduled lactulose twice a day, instead of p.r.n.. No indication for continuing antibiotics and discharge. Additional details concerning hospital stay as indicated below acute hepatic encephalopathy with hyperammonemia - in the setting of liver cirrhosis - initial ammonia 94 with repeat 105; currently 65 after lactulose - currently appears to be mentating at baseline, alert and oriented x3 - continue lactulose 30 g b.i.d. Question of acute UTI - UA not convincingly positive, likely contaminated with >20 squamous epithelial cells - treated with empiric ceftriaxone in the hospital, no indication for continue antibiotics at discharge slurred speech, likely due to hepatic encephalopathy - CVA less likely, though workup due to reported facial droop - CT and CTA unremarkable - pt has been refusing MRI brain - echo showing intra-atrial shunting suggestive of PFO; LVEF 60 65% - lipid panel with elevated LDL and low HDL - neurology consulted, believe that AMS secondary to UTI or ammonia; no indication to continue stroke workup with MRI PFO - incidental finding on echo - follow up with PCP seizure disorder - keppra cirrhosis - lactulose, spironolactone DM - sliding scale - redued dose lantus 18U QHS HLD - statin HTN - spironolactone Time Attestation Discharge Coordination Time (in mins): 37 Quality: Safe Use of Opioids Does Pt have an Active Cancer Diagnosis on the Problem List?: No Quality: Stroke Does the patient have a stroke diagnosis?: No Physical Exam Exam: Exam: General: AOx3, no acute distress Resp: CTA bilaterally CVS: S1, S2, RRR GI: +BS, NT, no distention Skin: Warm, dry Neuro: Cranial nerves II-XII grossly intact bilaterally. Motor grossly intact bilaterally. Possible right-sided facial droop, though smile symmetric; likely chronic. Exam essentially nonfocal. Negative pronator drift. Intact sensation to light touch of face and upper and lower extremities bilaterally. Global and symmetric weakness noted. Extremities: No edema Psych: Appropriate affect Vital Signs: Vital Signs: Last Vital Signs Temp 98.9 F 05/28/25 08:00 Pulse 80 05/28/25 08:00 Resp 13 05/28/25 08:00 BP 120/58 L 05/28/25 08:00 Pulse Ox 96 05/28/25 08:00 O2 Del Method Room Air 05/28/25 08:00 O2 Flow Rate 2 05/27/25 04:00 BMI result Body Mass Index 29.0 DS: Data Data Completed and Pending Labs on day of discharge: Laboratory Results - last 24 hr 05/27/25 05/27/25 05/27/25 09:41 12:32 19:36 WBC RBC Hgb Hct MCV MCH MCHC RDW Plt Count MPV Immature Gran % (Auto) Neut % (Auto) Lymph % (Auto) [place] % (Auto) Eos % (Auto) Baso % (Auto) Lymph # (Auto) [place] # (Auto) Eos # (Auto) Baso # (Auto) Abs Immat Gran (auto) Absolute Neuts (auto) Absolute Nucleated RBC Nucleated RBC % (auto) Sodium Potassium Chloride Carbon Dioxide Anion Gap BUN Creatinine Estim Creat Clear Calc Estimated GFR POC Glucose 211 H 270 H Random Glucose Calcium Magnesium Ammonia Troponin I High Sens 48.5 H 05/28/25 05/28/25 04:02 07:44 WBC 6.9 RBC 4.00 L Hgb 12.9 Hct 39.0 MCV 97.5 MCH 32.3 MCHC 33.1 RDW 14.6 Plt Count 170 MPV 10.8 Immature Gran % (Auto) 0.3 Neut % (Auto) 56.7 Lymph % (Auto) 28.4 [place] % (Auto) 8.9 Eos % (Auto) 4.8 H Baso % (Auto) 0.9 Lymph # (Auto) 2.0 [place] # (Auto) 0.6 Eos # (Auto) 0.3 Baso # (Auto) 0.1 Abs Immat Gran (auto) 0.02 Absolute Neuts (auto) 3.9 Absolute Nucleated RBC 0.000 Nucleated RBC % (auto) 0.0 Sodium 141 Potassium 3.5 Chloride 110 H Carbon Dioxide 24 Anion Gap 11 L BUN 12 Creatinine 0.50 Estim Creat Clear Calc 130.0 Estimated GFR > 60 POC Glucose 213 H Random Glucose 195 H Calcium 8.8 D Magnesium 1.6 Ammonia 65 H Troponin I High Sens Preliminary micro results at discharge 05/26/25 19:58 Blood Culture - Preliminary Blood - Venous No growth after 24 hours. 05/26/25 19:58 Blood Culture - Preliminary Blood - Venous No growth after 24 hours. Discharge Plan Discharge Anticipated Discharge Date/Time: 05/28/25 09:33 Patient Disposition: Xfer SNF Discharge Diagnosis: Acute hepatic encephalopathy secondary to hyperammonemia Referrals: Candie Richardson MD [Primary Care Provider, Medical] - 1 Week Discharge Medications: Continued acetaminophen 325 mg Tablet 650 mg PO Q6H PRN (Reason: Fever Or Pain) atorvastatin 20 mg tablet 20 mg PO BEDTIME melatonin 3 mg Tablet 3 mg PO BEDTIME PRN (Reason: Sleep) bisacodyl 10 mg Suppository 10 mg WV DAILY PRN (Reason: Constipation) Rx Instructions: If no BM in 8 hours after MoM. folic acid 1 mg Tablet 1 mg PO DAILY ergocalciferol (vitamin D2) 1,250 mcg (50,000 unit) Capsule 1,250 mcg PO MO multivitamin with minerals Tablet 1 tab PO DAILY insulin lispro [Humalog KwikPen Insulin] 100 unit/mL insulin pen See Protocol subcut TIDAC Protocol: Insulin Normal Sensitivity 1st 24 hrs Less than or equal to 110 ---- Give (units): 0 111 to 150 Give (units): 8 151 to 200 Give (units): 9 201 to 250 Give (units): 10 251 to 300 Give (units): 11 301 to 350 Give (units): 12 Greater than 350 Give (units): 13 Call if Blood Glucose > : 400 insulin glargine [Lantus Solostar U-100 Insulin] 100 unit/mL (3 mL) insulin pen 25 unit subcut BEDTIME loperamide [Imodium A-D] 2 mg Tablet 2 mg PO Q6H PRN (Reason: Loose Stool) potassium chloride 20 mEq/15 mL Liquid 20 meq PO BID magnesium hydroxide [Milk of Magnesia] 400 mg/5 mL Suspension 30 ml PO DAILY PRN (Reason: Constipation) Rx Instructions: If no BM in 3 days. Fleet Enema 19-7 gram/118 mL Enema 118 ml WV DAILY PRN (Reason: Constipation) Rx Instructions: If no BM in 8 hours after Bisacodyl suppository. sertraline 25 mg Tablet 25 mg PO DAILY levetiracetam [Keppra] 750 mg Tablet 750 mg PO BID ondansetron 4 mg Tablet,Disintegrating 4 mg PO Q8H PRN (Reason: Nausea And Vomiting) spironolactone 50 mg Tablet 50 mg PO DAILY Xifaxan 550 mg Tablet 550 mg PO BID magnesium oxide 400 mg magnesium Tablet 400 mg PO BID dextrose [Glucose Gel] 40 % Gel 10 g PO Q15M PRN (Reason: Hypoglycemia) Rx Instructions: FSBS <50 glucagon 1 mg Recon Soln 1 mg SUBCUT ONCE PRN (Reason: Hypoglycemia) Rx Instructions: FSBS < 60 AND UNABLE TO SWALLOW Changed lactulose 10 gram/15 mL Solution 30 ml PO BID Qty: 1200 0RF Rx Instructions: Take 30ml twice a day to prevent hyperammonemia Discharge Orders: Discharge Order (Routine); Ordered 05/28/25 Ordered By: Kimber Hernandez Activity on Discharge: As tolerated Stand Alone Forms: Patient Portal Discharge page Print Language: Unable To Collect Care Plan Goals: See below Health Concerns: Acute hepatic encephalopathy Hyperammonemia Acute decompensated liver cirrhosis Plan of Treatment: You were admitted to the hospital acute hepatic encephalopathy secondary to hyperammonemia. Although your ammonia was noted to be elevated above baseline, initial concern was also for possible acute stroke as there was a question of right-sided facial droop. However your encephalopathy quickly resolved after yo u were administered lactulose and your ammonia levels decreased. You were seen and evaluated by Neurology who thought symptoms were secondary to either ammonia levels or UTI. CT and CTA of head/neck were unremarkable. You were scheduled to get an MRI which you refused as he reported getting a headache from a previous MRI. Your urine analysis was not convincing for acute UTI, and there was no indication to continue empiric antibiotics. During last admission in March your UA culture was also negative. You were seen and evaluated this morning where your mentation appears back to baseline. You were very eager to go home and will be discharged back to your facility. As this is the 2nd presentation to the hospital for acute hepatic encephalopathy secondary to hyperammonemia, we will suggest changing your lactulose from as needed to scheduled twice a day. -- take lactulose 30 mL twice a day scheduled, no longer p.r.n. -- UA is not convincing for acute UTI. No indication to continue empiric antibiotics -- resume all of your other home medications Assessment: See discharge summary
--- NOTE | 2025-05-28 09:46 | MHC.CM.PN ---
Pt. has been medically cleared to DC, she will return to [facility] where she resides LTC, via BLS.
[2025-05-28 10:15] VITALS: BP 120/58; PULSE 80; RESP 13; TEMP 37.2; O2SAT 96
--- NOTE | 2025-05-31 16:26 | P.CDIM_ITS ---
PROVIDER RESPONSE TEXT: To clarify, the appropriate diagnosis supported by the clinical indicators: Metabolic: Likely acute metabolic encephalopathy secondary to hyperammonemia QUERY TEXT: PHYSICIAN'S DOCUMENTATION REQUEST Date of Query: 05/28/2025 11:00 AM EDT Patient Name: Alice Andres Admit Date: 05/27/2025 Dear Kimber YU, A review of the medical record indicates additional documentation may be needed. Please review below and update the documentation accordingly. Clinical Indicators: Progress note dated 05/27/25 - Patient requires continued hospitalization for continued monitoring and treatment for acute metabolic encephalopathy likely secondary to hyperammonemia. D/S-Admitted to the hospital acute hepatic encephalopathy secondary to hyperammonemia. Encephalopathy quickly resolved after administered lactulose and your ammonia levels decreased. Liver cirrhosis, ? UTI Neurology consulted, believe the AMS secondary to UTI or ammonia. Based on the above, please further specify, in the Progress Notes, clarity of a diagnosis that was documented within the patient's medical record: Metabolic possible, suspected, probable, cannot rule out etc. Toxic Toxic metabolic Hepatic (reported as hepatic failure and needs further specificity as to acute, subacute, or chronic) Due to a specified condition (such as UTI, hyponatremia, CVA, etc.) Other (explain) Clinically unable to determine (explain) Thank you, Agata Melendez, CCS, CDIS Use of terms such as suspected, likely, concern for, or probable (associated with a specific diagnosis that is being evaluated, monitored, or treated as if it exists) are acceptable and can be coded in the inpatient setting, when documented at the time of discharge. Please use your independent medical judgment in providing your response. THIS QUERY IS PART OF THE PERMANENT MEDICAL RECORD
== END 2025-05-28 10:11 | disposition skilled nursing facility (03) ==
LOC: HO.ED 22:42 → HO.EDOVER 05-27 00:09
PROVIDERS: Admitting Provider Physician Assistant; Emergency Provider Emergency Medicine; PCP Internal Medicine; Visit Provider Student in an Organized Health Care Education/Training Program
DX: K76.82 Hepatic encephalopathy (principal); Q21.12 Patent foramen ovale; E11.9 Type 2 diabetes mellitus without complications; N39.0 Urinary tract infection, site not specified; G40.909 Epilepsy, unspecified, not intractable, without status epilepticus; I10 Essential (primary) hypertension; K74.60 Unspecified cirrhosis of liver; E78.5 Hyperlipidemia, unspecified; Z20.822 Contact with and (suspected) exposure to COVID-19; Z79.4 Long term (current) use of insulin; Z79.899 Other long term (current) drug therapy
CPT/HCPCS: 36415; 70450; 70496; 70498; 80048; 80061; 80076; 80307; 81001; 82140; 82947; 83605; 83735; 84443; 84484; 85025; 85610; 87040; 87086; 87637; 93005; 93306; 97162; 97166; 99285; J0696; J1644; Q9957; Q9967

== ENCOUNTER → 2025-05-26 19:19 | Outpatient (BNV) | payer MEDICAID, SELFPAY | PROVIDERS: Admitting Provider Physician Assistant; Emergency Provider Emergency Medicine; PCP Internal Medicine; Visit Provider Radiology Diagnostic Radiology | DX: E04.2 Nontoxic multinodular goiter (principal); R29.810 Facial weakness; R47.81 Slurred speech | CPT/HCPCS: 70450; 70496; 70498 ==

== ENCOUNTER → 2025-05-26 19:46 | Outpatient (BNV) | payer MEDICAID, SELFPAY | PROVIDERS: Admitting Provider Physician Assistant; Emergency Provider Emergency Medicine; PCP Internal Medicine; Visit Provider Internal Medicine Cardiovascular Disease | DX: I63.9 Cerebral infarction, unspecified (principal) | CPT/HCPCS: 93010 ==

== ENCOUNTER 2025-05-27 00:05 | Outpatient (BNV) | payer MEDICAID, SELFPAY | END 2025-05-27 02:08 | PROVIDERS: Admitting Provider Physician Assistant; Emergency Provider Emergency Medicine; PCP Internal Medicine; Visit Provider Internal Medicine Cardiovascular Disease | DX: I34.81 Nonrheumatic mitral (valve) annulus calcification (principal); I35.8 Other nonrheumatic aortic valve disorders; R94.31 Abnormal electrocardiogram [ECG] [EKG] | CPT/HCPCS: 93010; 93306 ==

== ENCOUNTER → 2025-05-27 00:05 | Outpatient (BNV) | payer MEDICAID, SELFPAY | PROVIDERS: Admitting Provider Physician Assistant; Emergency Provider Emergency Medicine; PCP Internal Medicine; Visit Provider Psychiatry & Neurology Neurology | DX: R41.82 Altered mental status, unspecified (principal) | CPT/HCPCS: 99222 ==

== ENCOUNTER → 2025-05-27 00:05 | Outpatient (BNV) | payer MEDICAID, SELFPAY | PROVIDERS: Admitting Provider Physician Assistant; Emergency Provider Emergency Medicine; PCP Internal Medicine; Visit Provider Physician Assistant | DX: K76.82 Hepatic encephalopathy (principal); E72.20 Disorder of urea cycle metabolism, unspecified | CPT/HCPCS: 99239 ==